=== PATIENT | male | born 1960 | race Caucasian/White ===

== ENCOUNTER → 2017-08-15 | Outpatient (CLI) | payer OTHER ==
[~2017-08-15] MED LIST: APAP500 PO; BACTRIM DS TAB1 EACH; KEFLEX500 MG PO; LOSARTAN-HCTZ1 EAC2 PO; METFORMIN HCL1000 MG PO; METFORMIN HCL500 MG PO; MOBIC15 MG PO; NORVASC10 MG PO; NORVASC5 MG PO
== END ==
LOC: RAD 13:59
DX: M25.561 Pain in right knee (principal); G89.29 Other chronic pain

== ENCOUNTER 2018-06-15 05:27 | Inpatient (IN) | payer OTHER ==
[2018-06-15] VITALS (7 sets, daily range): BP systolic 105–138; BP diastolic 50–74
[~2018-06-15] VITALS: Ht 180.3 cm; Wt 158.8 kg
--- NOTE | ~2018-06-15 | D ---
[facility] [place] [address] DISCHARGE SUMMARY Name: SHAI SOTELO Brittani Room #: 459-P [facility] IN .R.#: [id number] Admission: 06/15/18 Attend Phys: Rylan Nettles MD Discharge: Date of : 60 Report #: [id number] THIS REPORT FOR: //name// CC: Rylan Mckeon PLANNED DATE OF DISCHARGE: 06/18/2018. FINAL DIAGNOSES: Include end-stage degenerative osteoarthritis, right hip; hypertension; diabetes and morbid obesity. OPERATIONS AND PROCEDURES: Right total hip arthroplasty. HISTORY OF PRESENT ILLNESS: This very heavy deconditioned 58-year-old gentleman presents with progressive right hip pain with marked deformity and femoral head collapse. He has elected to go ahead with total hip arthroplasty. We have discussed that he certainly is going to have difficulty with postoperative rehabilitation and recovery and is at risk for problems and complications given his morbid obesity, noting his height is about 6 feet and weight about 350 pounds. HOSPITAL COURSE: The patient was admitted and taken to the operating room on 06/15/2018. He underwent right total hip arthroplasty, which went generally well despite his very large size. Postoperatively, he made rapid progress. The next morning, he was already up walking with Physical Therapy assistance and able to manage chair and bathroom. He was able to manage a regular diet and oral medications. His pain seemed to be well controlled on oral hydrocodone. He is tolerating his normal diabetic diet and routine medications. At this point, I anticipate we will make satisfactory progress with Physical Therapy assistance over the coming 48 hours and we are tentatively planning for discharge home on 06/18/2018. This will certainly depend upon his progress and safety and level of independence. He is certainly much too large to manage with family assistance at home. His home does have some stairs and so access will be somewhat limited. Pending all these issues, however, he is hoping to go home with family assistance on 06/18/2018. DISCHARGE MEDICATIONS: Include losartan/hydrochlorothiazide 100/12.5 one tablet daily, Norvasc 5 mg once daily, metformin 1000 mg b.i.d., multivitamin once every day, aspirin 81 mg every day, Xarelto 10 mg every day and hydrocodone 10 mg q. 6 hours p.r.n. for pain. We will plan for some home visiting therapy as well as possible occupational therapy if necessary. He will continue with his walker for careful protected activity and ambulation. I have asked him to call should there be any problems [address] [address] DISCHARGE SUMMARY Name: SHAI SOTELO Room #: 459-P [facility] IN M.R.#: [id number] Admission: 06/15/18 Attend Phys: Rylan Nettles MD Discharge: Date of : 60 Report #: [id number] or questions. I will plan to see him back in my office at about 2 weeks for followup and suture removal. By: 1247 [id number] Rylan Nettles MD /nt
[~2018-06-15 05:27] MED LIST changes: +ASPIR 8181 MG PO; +CENTRUM SILVER1 EAC2 PO; +FISH OIL 1,001000 M2 PO; +NAPROSYN500 MG PO; +POTASSIUM CITR10 ME1 PO; +VITAMIN D1000 UNI1 PO
--- NOTE | 2018-06-15 19:41 | NUR ---
Received pt from post op, shakir dressing intact ice pack provided. IV fluids started, pain medication given, Pt has low tolerance for pain and has had a hard time repositioning to find a "comfortable spot", pt is now in the postion he wants apnea machine on. Clear liquids started and is well tolerated.
[2018-06-16 03:55] VITALS: BP 129/60
[2018-06-16 05:35] LABS: HEMOGLOBIN 11.3 gm/dL (14.0-18.0); MCH 26.9 pg (26.0-34.0); MCHC 33.2 g/dL (28.0-37.0); MCV 81.3 fL (80.0-100.0); RBC 4.19 mil/uL (4.50-6.00); RDW 15.6 % (10.5-14.5); WBC 11.2 thou/uL (4.0-11.0)
--- NOTE | 2018-06-16 07:47 | O ---
[facility] [place] [address] OPERATIVE REPORT Name: SHAI SOTELO Brittani Room #: 459-P [facility] IN M.R.#: [id number] Admission: 06/15/18 Attend Phys: Rylan Nettles MD Discharge: Date of : 60 Report #: [id number] THIS REPORT FOR: //name// CC: Rylan Mckeon DATE OF SERVICE: 06/15/2018 PREOPERATIVE DIAGNOSIS: End-stage degenerative arthritis, right hip. POSTOPERATIVE DIAGNOSIS: End-stage degenerative arthritis, right hip. PROCEDURE: Right total hip arthroplasty. SURGEON: Rylan Nettles MD. INDICATIONS: This obese 58-year-old gentleman has moderately severe degenerative osteoarthritis of both hips. He is most symptomatic on the right side. He is having difficulty remaining active and functionally independent. We discussed treatment options including potential risks and benefits, particularly given his obesity. He and family understand, but feel he is unable to make much progress in weight reduction. We have elected to go ahead with right total hip arthroplasty. DESCRIPTION OF PROCEDURE: The patient was taken to the operating room where he was placed under general anesthesia. Prophylactic intravenous antibiotics were administered. He was turned to the left lateral decubitus position. The right hip and thigh were meticulously prepped and draped. A skin incision was made centered over the greater trochanter and carried through abundant adipose tissue and fascia and the gluteus was split longitudinally allowing exposure to the posterior aspect of the hip joint. Exposure was quite difficult and required significant additional assistance given his very large size. The posterior aspect of the hip was visualized and the short external rotators and capsule were taken down and tagged with several #1 Tevdek sutures. The hip was dislocated and marked degenerative change on both the femoral head and acetabulum was noted. A femoral neck osteotomy was performed. The canal was prepared with reamers and hand broaches. The Benjamin and Nephew hip system was utilized. The size 15 Synergy porous high offset femoral stem seemed to fit most appropriately. The trial stem was removed and attention directed to the acetabulum. Satisfactory exposure was established with significant difficulty. The acetabulum was then sequentially reamed, gradually advancing to a 62-mm reamer. The Benjamin and Nephew size 62 mm StikTite coated shell was then inserted. This was positioned in alignment with his true acetabulum, which placed this in about 45 degrees off of vertical and about 20 degrees of anteversion. It seated nicely and appeared to be secure. In addition, 3 screws were placed through the apex of the shell engaging good periacetabular bone [address] [address] OPERATIVE REPORT Name: SHAI SOTELO Brittani Room #: 459-P [facility] IN .R.#: [id number] Admission: 06/15/18 Attend Phys: Rylan Nettles MD Discharge: Date of : 60 Report #: [id number] resulting in significant additional stability. A 40-mm polyethylene insert was then applied, placing this with the 20-degree elevated rim at about the 10 o'clock posterior position. It seated nicely and appeared to be secure. The size 15 press-fit lateral offset femoral stem was then inserted in the canal. It seated nicely and appeared to be secure. A trial reduction was performed and the hip seemed best suited for a +4 mm neck length. This still allowed some longitudinal distraction at the joint, but the joint seemed stable throughout a full arc of motion. It was difficult to compare leg lengths relative the opposite limb given his obesity and difficult positioning on the table. I tested both a shorter 0-mm neck length and a longer 8-mm neck length. The shoulder seemed to be significantly unstable and longer seemed to be too tight creating difficulty with hip extension. The +4 mm neck length seemed to be the best option. A +4 mm neck length with a 40-mm Oxinium femoral head was then selected. The permanent component was impacted on the Damico taper of the stem and seated nicely and appeared to be secure. The hip was reduced. Alignment, range of motion, stability and leg length appeared to be satisfactory. The capsule and short external rotators were then repaired using the #1 Tevdek sutures passed through drill holes in the greater trochanter. A single Hemovac was left in the wound exiting through a separate stab incision. The fascia was closed with multiple #1 Vicryl sutures. The abundant adipose tissues and subcutaneous tissues were closed with 0 Monocryl. The skin was closed with skin lynne. A sterile dressing was applied. The patient was awakened and returned to recovery room in good condition. <ELECTRONICALLY SIGNED> By: Rylan Nettles MD 06/16/18 0747 1212 1242 Rylan Nettles MD /nt
[2018-06-16 08:00] VITALS: BP 128/64
[2018-06-16 08:29] LABS: CALCIUM 8.5 mg/dL (8.5-10.1); CREATININE 1.4 mg/dL (0.7-1.3)
[2018-06-16 13:55] VITALS: BP 117/42
--- NOTE | 2018-06-16 13:58 | NUR ---
PT ADMITTED RELATED TO RT TOTAL HIP REPLACEMENT. CM REVIEWED CHART AND SPOKE WITH CARE TEAM. CM MET WITH PT AT BEDSIDE. CM MET WITH PT AT BEDSIDE THIS DAY. PT IS A&O X4. CM ROLE INTRODUCED. PT INDICATED HE LIVES IN A HOUSE WITH HIS AND DTR WITH 3 STEPS TO ENTER AND 7 EITHER UP OR DOWN TO ACCESS BEDROOM AND BATHROOMS. PT INDICATED HE HAD BEEN INDEPENDENT WITH GAIT AND ADLS BIG DATA ADMIN. PT INDICATED HE HAS A CPAP FOR HOME USE AND THAT HE WILL NEED A FWW ISSUED PTD. CM NOTIFIED PROVIDER PLUS LIAISON AND SHE WILL DELIVER WALKER. PT INDICATED HE PLANS TO HAVE HOME HEALTH PT FOR A TIME AND THEN PLANS TO TRANSITION TO OP. PT IS DETERMININING IF HE WILL GO TO HIS SISTERS HOUSE [place] WHERE HE WOULDN'T NEED TO NAVAGATE ANY STEPS. CM TO FOLLOW UP WITH PT.
--- NOTE | 2018-06-16 16:58 | NUR ---
IT IS ANTICPATED THAT PT WILL [facility]. [facility] HAS ACCEPTED PT. PT WAS ISSUED A FWW FOR HOME USE.
--- NOTE | 2018-06-16 17:55 | NUR ---
PT ARRIVES AT 1755 ACCOMPANIED BY FAMILY, STAFF, VOLUNTEER IN W/C. WENT TO RESTROOM AMB W/WALKER, STEADILY, IV SITE LOOKS LIKE IT'S LEAKED AT SOME POINT, FLUSHED AND ASPIRATED SUCCESSFULLY, A&0X4, DENIES PAIN AT THIS TIME, SOA W/MVMT. VS BEING TAKEN, IN JOVIAL SPIRITS W/FAMILY AND STAFF. ENCOURAGED ALL TO USE CALL LIGHT FOR ANY NEEDS
[2018-06-16 18:27] VITALS: BP 142/74
--- NOTE | 2018-06-16 18:50 | NUR ---
PATIENT DOING WELL POSTOP DAY #1. VOIDING WITHOUT DIFFICULTY AND IN ADEQUATE AMOUNTS. AMBULATING TO BATHROOM WITH MINIMAL ASSISTANCE. HAD INCREASED PAIN AFTER WALKING IN [place]ADE THIS AFTERNOON. GAVE SOME MORPHINE AND WAS ABLE TO REST AFTER THAT AND HAD GOOD PAIN RELIEF. TOLERATING DIET WELL. SAT UP IN CHAIR FOR SEVERAL HOURS. HEMOVAC DRAIN WAS PULLED APART WHEN WORKING WITH OT. DR. ODEN VISITED AND GAVE ORDER TO DC DRAIN. 350 ML SANGUINOUS DRAINAGE EMPTIED. FALL PRECAUTIONS IN PLACE. TRANSFERRED TO SENIOR SUITES IN STABLE CONDITION.
--- NOTE | 2018-06-17 04:36 | NUR ---
ASSUMED CARE OF PATIENT AT 1900. VSS. ASSESSMENT COMPLETED AT 2155 AND IS DOCUMENTED. PRN NORCO GIVEN FOR C/O RIGHT HIP PAIN WITH DESIRED EFFECT ACHIEVED. ICE PACKS PROVIDED PRN. PT VOICED CONCERN ABOUT UNCONTROLLABLE PAIN DURING YESTERDAY'S AFTERNOON THERAPY SESSION AND INQUIRED ABOUT RECEIVING SOMETHING MORE EFFECTIVE FOR TODAY'S THERAPY. ANGELES DRSG ON RIGHT HIP C/D/I. CPAP WORN DURING THE NIGHT. RIGHT WRIST PIV PATENT AND SALINE LOCKED. PT CURRENTLY SLEEPING SOUNDLY IN BED IN NO ACUTE DISTRESS. CALL LIGHT WITHIN REACH. BED LOCKED AND IN LOWEST POSITION. WCTM.
[2018-06-17 06:06] LABS: HEMATOCRIT 31.1 % (42.0-52.0); HEMOGLOBIN 10.7 gm/dL (14.0-18.0); MCHC 34.4 g/dL (28.0-37.0); MCV 81.4 fL (80.0-100.0); PLATELET COUNT 204 thou/uL (150-400); RBC 3.83 mil/uL (4.50-6.00); RDW 15.7 % (10.5-14.5); WBC 8.3 thou/uL (4.0-11.0)
[2018-06-17 06:15] LABS: CALCIUM 7.9 mg/dL (8.5-10.1); CREATININE 1.1 mg/dL (0.7-1.3); MAGNESIUM 2.1 mg/dL (1.8-2.4); POTASSIUM 3.5 mmol/L (3.5-5.1)
[2018-06-17 07:34] LABS: ABSOLUTE NEUTROPHILS 4.5 thou/uL (1.4-8.2); ANISOCYTOSIS 1+; POLYCHROMASIA OCCASIONAL
[2018-06-17 09:00] VITALS: BP 122/63
--- NOTE | 2018-06-17 09:00 | NUR ---
ASSUMED PT CARE AT 0700. ASSESSMENT COMPLETE AND IS CHARTED AT 0900. ASSISTED PT UP TO CHAIR WITH MINIMAL ASSISTANCE AND WALKER. PT TOLERATED WELL. DRESSING TO RIGHT HIP IS CDI IS HEMOVAC INSERTION SITE. TRACE EDEMA TO LOWER EXTREMITIES. DOYLE HOSE IN PLACE BILATERAL. PT DENIES PAIN AT THIS TIME BUT WOULD LIKE TO COORDINATE PAIN MEDICATION AND THERAPY YESTERDAY WAS A ROUGH AFTERNOON DUE TO PAIN. IV REMOVED DRESSING WAS SOILED. NO OTHER CONCERNS AT THIS TIME. WILL MANAGE PAIN AND COORDINATE WITH THERAPY TODAY. OTHERWISE CONTINUE CURRENT CARE.
--- NOTE | 2018-06-17 14:05 | NUR ---
PT DOING WELL THIS SHIFT. PT REPORTED PHYSICAL THERAPY WENT VERY WELL THIS MORNING DUE TO PAIN MEDICATION BEING GIVEN AN HOUR BEFORE. PT HAS BEEN UP IN CHAIR MOST OF DAY. FAMILY AT BEDSIDE NOW. NO NEW CONCERNS. WILL CONTINUE WITH CURRENT CARE.
[2018-06-17 19:20] VITALS: BP 133/65; BP 191/94
--- NOTE | 2018-06-18 04:54 | NUR ---
ASSUMED CARE OF PATIENT AT 1900. VSS. ASSESSMENT COMPLETED AT 2022 AND IS DOCUMENTED. PT STATES PAIN WAS MORE EFFECTIVELY CONTROLLED FOR THERAPY YESTERDAY AND REQUESTS THAT, IF POSSIBLE, HE RECEIVE PAIN MEDS 1 HR PRIOR TO THERAPY. ANGELES DRSG C/D/I. CONTINUES ON CPAP AT NIGHT. PRN NORCO GIVEN PER PT REQUEST FOR C/O RIGHT HIP PAIN WITH DESIRED EFFECT ACHIEVED. PT HAS BEEN SLEEPING SOUNDLY THROUGHOUT THE NIGHT IN NO ACUTE DISTRESS. CALL LIGHT WITHIN REACH. BED LOCKED AND IN LOWEST POSITION. WCTM.
--- NOTE | 2018-06-18 06:32 | NUR ---
THIS NURSE AGREES WITH THE ASSESSMENT AND NOTES FROM THE RECONSIGNMENT CLERK ON THIS PATIENT.
[2018-06-18 06:43] LABS: HEMATOCRIT 31.5 % (42.0-52.0); HEMOGLOBIN 10.3 gm/dL (14.0-18.0); MCHC 32.7 g/dL (28.0-37.0); MCV 82.7 fL (80.0-100.0); RBC 3.82 mil/uL (4.50-6.00); RDW 15.3 % (10.5-14.5)
[2018-06-18 08:19] VITALS: BP 159/83
[2018-06-18 12:57] VITALS: BP 159/83
--- NOTE | 2018-06-18 12:57 | NUR ---
ASSUMED CARE OF PATIENT THIS MORNING. PATIENT IS A&OX4. UP WITH MINIMUM ASSISTANCE W/WALKER WHEN AMBULATING. NO ABNORMAL FINDINGS WITH ASSESSMENT. LAST BOWEL MOVEMENT WAS THIS MORNING. REFUSED STOOL SOFTENERS AND LAXATIVE. PATIENT WILL BE DISCHARGING THIS AFTERNOON WITH HOME HEALTH. HE WILL FOLLOW UP WITH [facility] ON 06/29/18. HE IS CURRENTLY SITTING IN RECLINER WITH CALL LIGHT WITHIN REACH. NO IV TO REMOVE FOR DISCHARGE.
--- NOTE | 2018-06-18 14:39 | NUR ---
PATIENT DISCHARGED WITH HOME HEALTH. HE WENT HOME WITH TWO PRESCRIPTIONS. PATIENT IN AGREEMENT WITH DISCHARGE, AND SIGNED PAPERWORK. HE LEFT WITH PERSONAL BELONGINGS AND NEW WALKER.
== END 2018-06-18 14:30 | disposition home health service (06) | DRG 469 ==
LOC: 4W 05:27 → TBA 05:27 → PRE 05:51 → 4W 14:41 → PRE 15:05 → SICU 06-16 18:13
PROVIDERS: Nurse Practitioner; ADMIT Orthopaedic Surgery
PROC: 0SR906A Replacement of Right Hip Joint with Oxidized Zirconium on Polyethylene Synthetic Substitute, Uncemented, Open Approach (ICD-10-PCS; principal; 2018-06-15)
DX: M16.11 Unilateral primary osteoarthritis, right hip (principal); N17.0 Acute kidney failure with tubular necrosis; Z68.42 Body mass index [BMI] 45.0-49.9, adult; E66.01 Morbid (severe) obesity due to excess calories; I10 Essential (primary) hypertension; E11.9 Type 2 diabetes mellitus without complications; E78.5 Hyperlipidemia, unspecified; K21.9 Gastro-esophageal reflux disease without esophagitis; E78.00 Pure hypercholesterolemia, unspecified; F12.90 Cannabis use, unspecified, uncomplicated; G47.33 Obstructive sleep apnea (adult) (pediatric); Z88.6 Allergy status to analgesic agent; Z88.8 Allergy status to other drugs, medicaments and biological substances; Z79.82 Long term (current) use of aspirin; Z79.899 Other long term (current) drug therapy; Z87.891 Personal history of nicotine dependence; Z28.21 Immunization not carried out because of patient refusal; Z83.3 Family history of diabetes mellitus; Z82.49 Family history of ischemic heart disease and other diseases of the circulatory system
CPT/HCPCS: 10047; 15002; 50010; 50101; 50382; 50414; 51412; 53000; 53368; 56521; 56525; 56527; 57095; 57103; 62110; 62900; 70005

== ENCOUNTER → 2018-12-29 | Outpatient (CLI) | payer OTHER ==
[~2018-12-29] MED LIST changes: +BYSTOLIC 5 MG5 M1 PO; +COZAAR 25 MG TA25 M1 PO; +CRESTOR20 MG PO; +GLUCOSAMINE HC500 MG PO; +TAMBOCOR 100 M100 M1 PO; +WELLBUTRIN 75 M75 M1 PO; +XARELTO20 MG PO
== END ==
LOC: CAT 12:45
DX: Z13.6 Encounter for screening for cardiovascular disorders (principal); E78.00 Pure hypercholesterolemia, unspecified; I25.10 Atherosclerotic heart disease of native coronary artery without angina pectoris

== ENCOUNTER 2019-01-09 18:11 | Inpatient (IN) | payer OTHER ==
[~2019-01-09] VITALS: Ht 180.3 cm; Wt 155.6 kg
--- NOTE | ~2019-01-09 | EKG ---
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
[~2019-01-09 18:11] MED LIST changes: -BYSTOLIC 5 MG5 M1 PO; -COZAAR 25 MG TA25 M1 PO; -CRESTOR20 MG PO; -GLUCOSAMINE HC500 MG PO; -TAMBOCOR 100 M100 M1 PO; -WELLBUTRIN 75 M75 M1 PO; -XARELTO20 MG PO
[2019-01-09 18:12] VITALS: BP 173/123
[2019-01-09 18:26] LABS: ABSOLUTE NEUTROPHILS 9.2 thou/uL (1.4-8.2); BASOPHILS 0.6 % (0.0-2.0); EOSINOPHILS 0.4 % (0.0-3.0); HEMATOCRIT 41.1 % (42.0-52.0); HEMOGLOBIN 13.7 gm/dL (14.0-18.0); LYMPHOCYTES 13.1 % (24.0-44.0); MCH 26.3 pg (26.0-34.0); MCHC 33.3 g/dL (28.0-37.0); MCV 78.8 fL (80.0-100.0); MONOCYTES 9.5 % (1.0-8.0); PLATELET COUNT 285 thou/uL (150-400); POLYS 76.4 % (36.0-66.0); RBC 5.22 mil/uL (4.50-6.00); RDW 16.6 % (10.5-14.5)
[2019-01-09 18:36] LABS: ANION GAP 12 mmol/L (7-16); BUN 17 mg/dL (7-18); CALCIUM 9.2 mg/dL (8.5-10.1); CHLORIDE 103 mmol/L (98-107); CO2 24 mmol/L (21-32); CREATININE 1.1 mg/dL (0.7-1.3); GLUCOSE 127 mg/dL (74-106); POTASSIUM 4.1 mmol/L (3.5-5.1); SODIUM 139 mmol/L (136-145)
[2019-01-09 18:46] LABS: ALBUMIN 3.7 g/dL (3.4-5.0); SGOT 31 U/L (15-37); SGPT 57 U/L (30-65); TOTAL BILIRUBIN 1.2 mg/dL (<0.1-1.0); TOTAL PROTEIN 8.1 g/dL (6.4-8.2); TROPONIN-I <0.06 ng/mL (<0.06)
[2019-01-09] MEDS ORDERED: BYSTOLIC 5 MG5 M1 PO (19:42)
[2019-01-09] MEDS ORDERED: NAPROSYN500 MG PO (19:46)
[2019-01-09] MEDS ORDERED: WELLBUTRIN 75 M75 M1 PO (19:47)
[2019-01-09 19:51] VITALS: BP 187/98
[2019-01-09 20:00] VITALS: BP 161/97
[2019-01-09 20:16] VITALS: BP 169/90
[2019-01-09 20:36] VITALS: BP 161/97
[2019-01-09 23:53] VITALS: BP 169/100
[2019-01-10] VITALS (11 sets, daily range): BP systolic 118–169; BP diastolic 77–100
--- NOTE | 2019-01-10 05:59 | NUR ---
PT ARRIVED TO UNIT APPROX 2029, ADMISSION AND ASSESSMENT COMPLETED, CONSENTS SIGNED INCLUDING TELEMETRY DISCLOSURE. PT ABLE TO WALK FROM CART TO BED, BECAME MODERATELY SOB AND DIAPHORETIC. REPORTS MINIMAL CHEST PAIN COMPARED TO EARLIER IN THE DAY WHEN IT WAS A DULL, HEAVY PRESSURE ON HIS CHEST; STATES THE PAIN IMPROVED AFTER GETTING CARDIZEM IN ED. HR 125-135, AFIB RVR ON TELE; DILTIAZEM INFUSING AT 15 ML/HR, BP 160'S/90'S. AT MIDNIGHT, PT'S BP WAS 169/100 AND HR STILL 105-115, TITRATED DRIP UP TO 20 ML/HR. AT 0400, HR WAS 80-90 BUT STILL AFIB, BP 130'S/80'S; TITRATED DRIP TO 15, THEN AN HOUR LATER HR STILL MAINTAINING IN 80'S, TITRATED DOWN TO 10 ML/HR. PT IS ACCUCHECK ACHS, GIVEN 3 UNITS OF LISPRO FOR HS BLOOD SUGAR OF 162; PT ALSO HAD A SNACK. SKIN INTACT. KEEPING PT STANDBY ASSIST OVERNIGHT R/T IRREGULAR HR AND ELEVATED BP WITH DIZZINESS AT HOME PRIOR TO TREATMENT. PT WEARS CPAP OVERNIGHT, WITH CONT PULSE OX; ASKED FOR SLEEPING PILL HE REPORTS BEING UNABLE TO SLEEP IN THE HOSPITAL, OBTAINED ORDER FOR TRAZADONE. NO OTHER CONCERNS, WILL CONTINUE TO MONITOR.
[2019-01-10 06:00] LABS: HEMATOCRIT 37.2 % (42.0-52.0); HEMOGLOBIN 12.3 gm/dL (14.0-18.0); MCH 26.4 pg (26.0-34.0); RBC 4.65 mil/uL (4.50-6.00); RDW 16.5 % (10.5-14.5); WBC 9.8 thou/uL (4.0-11.0)
[2019-01-10 06:26] LABS: ANION GAP 9 mmol/L (7-16); BUN 16 mg/dL (7-18); CALCIUM 8.5 mg/dL (8.5-10.1); CHLORIDE 104 mmol/L (98-107); CO2 27 mmol/L (21-32); CREATININE 1.2 mg/dL (0.7-1.3); GLUCOSE 119 mg/dL (74-106); POTASSIUM 3.6 mmol/L (3.5-5.1); SODIUM 140 mmol/L (136-145); TROPONIN-I <0.06 ng/mL (<0.06)
[2019-01-10] MEDS ORDERED: CRESTOR20 MG PO (09:26)
--- NOTE | 2019-01-10 09:26 | NUR ---
RD consult received for pt with obesity. BMI 47.9=extreme class III classification. Pt sleeping on cpap at time of visit. Breakfast tray observed, had eaten 100%. Hx diabetes, htn and BG controlled 106-162. Has regular diet order ordered, however was on carb control, heart healthy 1 day ago which is more appropriate given history, Wt down ~7 lb x 8 mo, beneficial. Continue to promote controlled loss. Low nutrition risk.
[2019-01-10] MEDS ORDERED: BYSTOLIC 5 MG5 M1 PO (09:29)
[2019-01-10] MEDS ORDERED: GLUCOSAMINE HC500 MG PO (09:43)
--- NOTE | 2019-01-10 12:14 | 2DMMODE ---
[facility] [place] [address] 2 D/M-MODE ECHOCARDIOGRAM Name: SHAI SOTELO Room #: 357-P [facility].#: [id number] Admission: 01/09/19 Attend Phys: Heather Lucio Discharge: Date of : 60 Date of Service: 01/10/19 1213 Report #: [id number] THIS REPORT FOR: //name// APPROVED REPORT Study performed: 01/10/2019 10:32:43 EXAM: Comprehensive 2D, Doppler, and color-flow Echocardiogram Patient Location: Bedside Status: routine BSA: 2.63 HR: 82 bpm BP: 135/85 mmHg Rhythm: Atrial Fibrillation Other Information Study Quality: Technically Difficult Indications Diabetes Atrial Fibrillation Dyspnea Hypertension/HDD Echo Enhancing Agent Indication: Endocardial border delineation Agent(s) / Amount(s) Used: Optison 4 cc 2D Dimensions RVDd: 36.62 mm IVC: 25.00 mm Volumes Left Atrial Volume (Systole) Single Plane 4CH: 116.85 mL Single Plane 2CH: 93.41 mL LA ESV Index: 44.00 mL/m2 Aortic Valve AoV Peak Valeriano.: 1.04 m/s AO Peak Gr.: 4.35 mmHg LVOT Max P.55 mmHg LVOT Max V: 0.79 m/s Pulmonary Valve PV Peak Valeriano.: 0.81 m/s PV Peak Gr.: 2.61 mmHg [facility] [address] [place] [address] 2 D/M-MODE ECHOCARDIOGRAM Name: SHAI SOTELO Brittani Room #: 357-P ADM IN M.R.#: [id number] Admission: 01/09/19 Attend Phys: Heather Lucio Discharge: Date of : 60 Date of Service: 01/10/19 1213 Report #: [id number] Tricuspid Valve TR Peak Valeriano.: 2.88 m/s TR Peak Gr.: 33.22 mmHg PA Pressure: 48.00 mmHg Left Ventricle The left ventricle is normal size. There is normal LV segmental wall motion. There is normal left ventricular wall thickness. The left ventricular systolic function is normal. The left ventricular ejection fraction is within the normal range. LVEF is >55%. This study is not technically sufficient to allow evaluation of the LV diastolic function due to atrial fibrillation. Right Ventricle The right ventricle is normal size. The right ventricular systolic function is normal. Atria Left atrium is dilated. Right atrium is dilated. Aortic Valve The aortic valve is normal in structure. Trace aortic regurgitation. There is no aortic valvular stenosis. Mitral Valve The mitral valve is normal in structure. Moderate mitral regurgitation. No evidence of mitral valve stenosis. Tricuspid Valve The tricuspid valve is normal in structure. There is mild tricuspid regurgitation. Estimated PAP 48 mmHg. There is moderate pulmonary hypertension. Pulmonic Valve The pulmonary valve is normal in structure. There is no pulmonic valvular regurgitation. Great Vessels The aortic root is normal in size. The inferior vena cava is dilated with no inspiratory collapse. Pericardium There is no pericardial effusion. <Conclusion> [facility] [address] [place] [address] 2 D/M-MODE ECHOCARDIOGRAM Name: SHAI SOTELO Room #: 357-P ADM IN M.R.#: [id number] Admission: 01/09/19 Attend Phys: Heather Lucio Discharge: Date of : 60 Date of Service: 01/10/19 1213 Report #: [id number] The left ventricle is normal size. LVEF is >55%. Left atrium is dilated. Right atrium is dilated. The aortic valve is normal in structure. Trace aortic regurgitation. The mitral valve is normal in structure. Moderate mitral regurgitation. The tricuspid valve is normal in structure. There is mild tricuspid regurgitation. Estimated PAP 48 mmHg. There is moderate pulmonary hypertension. The pulmonary valve is normal in structure. There is no pericardial effusion. <ELECTRONICALLY SIGNED> By: Portillo Benton MD 01/10/193 12 12 Portillo Benton MD /INF
--- NOTE | 2019-01-10 14:54 | NUR ---
INITIAL ASSESSMENT: Received consult for cardiac rehab. SW reviewed chart and spoke with attending physician. Pt was admitted from home due to chest pain/A-fib with RVR. Cardiology consulted. Pt to have an echo today and TRINI/cardioversion tomorrow. SW met with pt at bedside. Introduced role of SW. Pt is alert/orientated x 4. Pt reports he lives at home with his family. Prior to admission, pt was independent with ADLs. Pt has a cpap machine at home. Unsure of provider. Pt's PCP is Dr. Mckeon. Plan is for pt to discharge home when medically stable. SW is follwoing to assist as needed with discharge planning.
--- NOTE | 2019-01-10 17:39 | NUR ---
ASSUMED CARE OF PATIENT AT 0700 TODAY. PATIENT IS ON CARDIZIEM DRIP, FOR ATRIAL FIBRILLATION, AT 10 ML/HR AND SEEMS TO BE A THERAPEUTIC AT THAT LEVEL. BLOOD PRESSURE AND HR HAVE BEEN IN GOOD STANDING WITH SYSTOLIC BP'S UNDER 140 AND HR IN 70S-80S. PATIENT HAD TRANSTHORAIC ECHO TODAY SHOWING LVEF>55%. PATIENT IS NPO AFTER MIDNIGHT FOR ESOPHOGEAL ECHO WITH CARDIOVERSION TOMORROW.
[2019-01-11] VITALS (13 sets, daily range): BP systolic 120–153; BP diastolic 61–96
[2019-01-11 05:44] LABS: CALCIUM 8.5 mg/dL (8.5-10.1); CREATININE 1.3 mg/dL (0.7-1.3); POTASSIUM 3.4 mmol/L (3.5-5.1)
--- NOTE | 2019-01-11 06:13 | NUR ---
ASSUMED CARE AT 1900. PT REPORTS HIS CHEST PAIN IS NEGLIGIBLE, FEELS LIKE BRUISING FROM HIS RAPID HEARTRATE YESTERDAY; ONLY RATES IT ABOUT A ONE OF TEN, WORSE WITH DEEP INSPIRATION. STILL C/O SOB WITH ACTIVITY OR TALKING. DENIES NAUSEA. CARDIZEM DRIP INFUSING AT 10 ML/HR OVERNIGHT. PT'S PRIMARY CONCERN WAS BEING ABLE TO SLEEP OVERNIGHT BECAUSE HE SLEPT POORLY THE PREVIOUS SEVERAL NIGHTS AND HE DIDN'T WANT TO BECOME OVERLY ANXIOUS FOR HIS PROCEDURE IN AM. REPORTED THE BED HAD CAUSED HIM INCREASED BACK AND HIP PAIN. OBTAINED ORDER FOR TRAMADOL AND INCREASED DOSE OF TRAZADONE. PT HAS SLEPT MOST OF THE NIGHT, LESS RESTLESS THAN PREVIOUS SHIFT. HR HAS BEEN STABLE IN 70-80'S, STILL IN AFIB. NPO SINCE MIDNIGHT FOR TRINI WITH CARDIOVERSION TODAY. NO OTHER CONCERNS, WILL CONTINUE TO MONITOR.
[2019-01-11] MEDS ORDERED: XARELTO20 MG PO (09:39)
[2019-01-11] MEDS ORDERED: TAMBOCOR 100 M100 M1 PO (09:39)
[2019-01-11] MEDS ORDERED: COZAAR 25 MG TA25 M1 PO (09:40)
--- NOTE | 2019-01-11 09:47 | TEE ---
[facility] [address] [place] [address] TRANSESOPHAGEAL ECHOCARDIOGRAM Name: DEEPAKSHAI P Room #: 357-P [facility] IN ..#: [id number] Admission: 01/09/19 Attend Phys: Heather Lucio Discharge: Date of : 60 Date of Service: 01/11/19 0947 Report #: [id number] THIS REPORT FOR: //name// APPROVED REPORT Study performed: 01/11/2019 07:50:32 EXAM: Comprehensive 2D, Doppler, and color-flow Echocardiogram Patient Location: label coder holding Room #: 357 Status: routine BSA: 2.63 HR: 122 bpm BP: 127/70 mmHg Rhythm: Atrial Fibrillation Other Information Study Quality: Excellent Indications Atrial Fibrillation Echo Enhancing Agent Indication: Rule out Shunt Agent(s) / Amount(s) Used: Agitated Saline 7 cc Procedure After obtaining informed consent, patient underwent transesophageal echo in the [employer]. Type of Sedation : Conscious Sedation Sedation was administered by Janice Coles MD. Ketamine 15 mg Sedation was achieved intravenously with: Propofol (140 mcg) Transesophageal probe was inserted and advanced into esophagus without difficulty by Kenneth Michelle MD. Echo enhancement indication: R/O Septal defect. Echo enhancement agent administered: Agitated Saline The TRINI was performed without complications. Synchronized Cardioversion acheived with 150 Joules after 1 attempt(s). Rhythm following Synchronized Cardioversion: Normal Sinus Rhythm Throughout the procedure, the blood pressure, pulse oximetry, cardiac rhythm, and rate were monitored. [facility] [employer] [place] [address] TRANSESOPHAGEAL ECHOCARDIOGRAM Name: SHAI SOTELO Brittani Room #: 357-P [facility] IN ..#: [id number] Admission: 01/09/19 Attend Phys: Heather Lucio Discharge: Date of : 60 Date of Service: 01/11/19 0947 Report #: [id number] The patient tolerated the procedure without adverse effects. Recovery from conscious sedation was uneventful and vital signs were stable. Left Ventricle The left ventricle is normal size. There is normal LV segmental wall motion. There is normal left ventricular wall thickness. The left ventricular systolic function is normal. The left ventricular ejection fraction is within the normal range. LVEF is 55-60%. Right Ventricle The right ventricle is normal size. The right ventricular systolic function is normal. Atria Left atrium is dilated. No thrombus is visualized in the left atrium or appendage. No shunting by contrast bubble injection Right atrium is dilated. Aortic Valve The aortic valve is normal in structure. No aortic regurgitation is present. There is no aortic valvular stenosis. Mitral Valve The mitral valve is normal in structure. Moderate mitral regurgitation. No evidence of mitral valve stenosis. Tricuspid Valve The tricuspid valve is normal in structure. Trace to mild tricuspid regurgitation. Pulmonic Valve The pulmonary valve is normal in structure. There is no pulmonic valvular regurgitation. Great Vessels The aortic root is normal in size. IVC is normal in size and collapses >50% with inspiration. Pericardium There is no pericardial effusion. <Conclusion> The left ventricular systolic function is normal. There is normal LV segmental wall motion. LVEF is 55-60%. [facility] [address] [place] [address] TRANSESOPHAGEAL ECHOCARDIOGRAM Name: SHAI SOTELO Brittani Room #: 357-P ADM IN .R.#: [id number] Admission: 01/09/19 Attend Phys: Heather Lucio Discharge: Date of : 60 Date of Service: 01/11/1947 Report #: [id number] Both atria are mildly dilated. No thrombus is visualized in the left atrium or appendage. No shunting by contrast bubble injection The aortic valve is normal in structure. Trace aortic regurgitation The mitral valve is normal in structure. Moderate mitral regurgitation. There is no pericardial effusion. Successful cardioversion of atrial fibrillation to sinus rhythm following 1 biphasic synchronous shock <ELECTRONICALLY SIGNED> By: Kenneth Michelle MD, FACC 01/11/19946 6 6 Kenneth Michelle MD, FACC /INF
--- NOTE | 2019-01-11 10:18 | NUR ---
PT TO TRINI AT 0715. PT BACK ON UNIT AT 0930. PT SUPPOSED TO BE ON BEDREST FOR AN HOUR PER CARDIOLOGY NURSE. PT REFUSING TO USE URINAL, GETTING ANGRY TELLING THE RN HE WILL NOT STAY IN BED THAT HE HAS TO PEE AND HE IS WALKING TO THE BATHROOM. DEMANDING RN LOWER BED RAIL SO HE CAN GET OUT OF BED. PT STEADY ON FEET TO BATHROOM. PT DIAPHORETIC, VSS. IN ROOM. PT STATING HE NEEDS WATER AND FOOD NOW. INSTRUCTED PT THAT HE WOULD GET A SIP OF WATER TO MAKE SURE HIS GAG AND SWALLOW REFLEX WERE INTACT AFTER PROCEDURE. HE SAID HOW DO YOU THINK I EAT IF I CAN'T SWALLOW? GAVE PT SIP OF WATER, HE SWALLOWED FINE. WATER AND DIET SPRITE GIVEN. MEDICATIONS GIVEN AND PT APPLIED TO FREQUENT VITALS.
--- NOTE | 2019-01-11 14:12 | NUR ---
SW reviewed chart and spoke with nursing and attending physician. Pt had TRINI earlier today. Plan is for pt to discharge home when medically stable. DENISSE is following to assist as needed with discharge planning.
--- NOTE | 2019-01-11 14:38 | NUR ---
PT CALLED OUT REPEATEDLY ASKING FOR DISCHARGE PAPERS. INFORMED PT THAT WHILE CARDIOLOGY SAID HE IS FREE TO GO, DR ALCANTAR SAID HE WANTS TO SEE WHAT PULMONOLOGY SAYS FIRST. PT VERY VERBALLY AGGRESSIVE WITH RN AND BILLING AUDITOR. INFORMED PT PULM IS ROUNDING, PT WANTS TO KNOW EXACT TIME HE WILL BE HERE, IS NOT PLEASED WITH NOT KNOWING. SPOKE WITH DR MCCURDY, STATES HE IS IN THE BUILDING.
--- NOTE | 2019-01-11 15:53 | NUR ---
DR MCCURDY ON UNIT, PENDING DISCHARGE IN COMPUTER PER DR ALCANTAR. WILL DISCHARGE IF OK WITH DR MCCURDY.
--- NOTE | 2019-01-11 16:50 | NUR ---
DISCHARGE INSTRUCTIONS REVIEWED WITH PT AND . EDUCATION MATERIALS, DISCHARGE INSTRUCTIONS AND RX SENT WITH PT. PIV AND TELEMETRY DISCONTINUED. QUESTIONS ANSWERED.
--- NOTE | 2019-01-12 14:00 | EKG ---
[address] [email or web address] [address] ELECTROCARDIOGRAM REPORT Name: SHAI SOTELO Room #: 357-[facility] IN M.R.#: [id number] Admission: 01/09/19 Attend Phys: Heather Gaffney Discharge: 01/11/19 Date of : 60 Report #: [id number] THIS REPORT FOR: //name// [facility] Test Date: 2019-01-11 Test Time: 10:21:10 Pat Name: SHAI SOTELO Department: Room: 357 Gender: M Hospital Carrier: GORDON : 1960 Requested By: Dawna Batres Order Number: [id number] MD: Kenneth Michelle Measurements Intervals [place] Rate: 78 P: 63 [place]: 193 QRS: 8 QRSD: 109 T: 42 QT: 431 QTc: 491 Interpretive Statements Sinus rhythm Borderline prolonged QT interval Compared to ECG 01/09/2019 18:12:17 Atrial flutter no longer present Electronically Signed On 01-12-2019 14:00:13 CDT by Kenneth Michelle [email or web address] <ELECTRONICALLY SIGNED> By: Kenneth Michelle MD, [facility] 01/12/19 1400 102 20 Kenneth Michelle MD, [facility] /EPI
== END 2019-01-11 17:25 | disposition home or self-care (01) | DRG 309 ==
LOC: ER 18:11 → EROBS 19:27 → 3W 19:27 → ENTRNSPT 01-11 16:43 → 3W 01-11 17:25
PROVIDERS: Emergency Medicine; Nurse Practitioner; Nurse Practitioner Family; ADMIT Hospitalist
PROC: B24BZZ4 Ultrasonography of Heart with Aorta, Transesophageal (ICD-10-PCS; principal; 2019-01-11)
DX: I48.91 Unspecified atrial fibrillation (principal); Z68.42 Body mass index [BMI] 45.0-49.9, adult; E11.9 Type 2 diabetes mellitus without complications; E78.5 Hyperlipidemia, unspecified; E66.01 Morbid (severe) obesity due to excess calories; Z96.649 Presence of unspecified artificial hip joint; I07.1 Rheumatic tricuspid insufficiency; G47.33 Obstructive sleep apnea (adult) (pediatric); I10 Essential (primary) hypertension; Z87.81 Personal history of (healed) traumatic fracture; Z88.6 Allergy status to analgesic agent; Z88.8 Allergy status to other drugs, medicaments and biological substances; Z87.891 Personal history of nicotine dependence; Z82.49 Family history of ischemic heart disease and other diseases of the circulatory system; Z95.1 Presence of aortocoronary bypass graft; Z79.82 Long term (current) use of aspirin; Z79.899 Other long term (current) drug therapy
CPT/HCPCS: 10879; 62110; 62900

== ENCOUNTER 2019-03-22 06:01 | Inpatient (IN) | payer OTHER ==
[2019-03-15 09:54] LABS: HEMATOCRIT 39.8 % (42.0-52.0); HEMOGLOBIN 12.8 gm/dL (14.0-18.0); MCH 25.9 pg (26.0-34.0); MCHC 32.2 g/dL (28.0-37.0); MCV 80.5 fL (80.0-100.0); RBC 4.95 mil/uL (4.50-6.00); RDW 16.5 % (10.5-14.5); WBC 6.8 thou/uL (4.0-11.0)
[2019-03-15 10:04] LABS: ALBUMIN 3.4 g/dL (3.4-5.0); CALCIUM 8.7 mg/dL (8.5-10.1); CREATININE 0.9 mg/dL (0.7-1.3); POTASSIUM 3.9 mmol/L (3.5-5.1)
[2019-03-15 10:06] LABS: URINE BILIRUBIN NEGATIVE (Negative); URINE BLOOD 1+ (Negative); URINE CLARITY CLEAR; URINE COLOR YELLOW; URINE GLUCOSE-RANDOM* NEGATIVE (Negative); URINE KETONES NEGATIVE (Negative); URINE LEUKOCYTES-REFLEX NEGATIVE (Negative); URINE NITRITE-REFLEX NEGATIVE (Negative); URINE PROTEIN (DIPSTICK) NEGATIVE (Negative); URINE SPECIFIC GRAVITY 1.025 (1.005-1.035); URINE UROBILINOGEN 0.2 E.U./dl (0.2-1.0)
[2019-03-15 10:07] LABS: INR 1.1; PROTIME 11.7 Seconds (9.3-11.4)
[2019-03-15 10:26] LABS: CASTS None Seen /LPF (None Seen); MUCUS 4-6 Moderate strn/LPF (None Seen); SQUAMOUS 0-3 Few /LPF (0-3)
[2019-03-15 10:27] LABS: BACTERIA-REFLEX None Seen /HPF (None Seen); CRYSTALS None Seen /LPF (None Seen); URINE RBC 3-10 Few /HPF (0-2); URINE WBC-REFLEX 0-5 Rare /HPF (0-5)
[2019-03-16 00:07] LABS: GLYCOHEMOGLOBIN (HGB A1C) 5.8 % (4.8-5.6)
[~2019-03-22] VITALS: Ht 182.9 cm; Wt 160.6 kg
[~2019-03-22 06:01] MED LIST changes: +BYSTOLIC 5 MG5 M1 PO; +COZAAR 25 MG TA25 M1 PO; +COZAAR100 MG PO; +CRESTOR20 MG PO; +FISH OIL 1,0001 EAC9 PO; +GLUCOPHAGE1000 MG PO; +GLUCOSAMINE HC500 MG PO; +TAMBOCOR 100 M100 M1 PO; +VITAMIN D31000 UNIT PO; +WELLBUTRIN 75 M75 M1 PO; +XARELTO20 MG PO
[2019-03-22 08:29] VITALS: BP 130/67
--- NOTE | 2019-03-22 12:23 | O ---
[facility] [place] [address] [place] [address] OPERATIVE REPORT Name: SHAI SOTELO Brittani Room #: 150-2 ADM IN M.R.#: [id number] Admission: 03/22/19 Attend Phys: Rylan Nettles MD Discharge: Date of : 60 Report #: [id number] THIS REPORT FOR: //name// CC: Rylan Mckeon DATE OF SERVICE: 03/22/2019 PREOPERATIVE DIAGNOSIS: End-stage degenerative arthritis, left hip. POSTOPERATIVE DIAGNOSIS: End-stage degenerative arthritis, left hip. PROCEDURE: Left total hip arthroplasty. HISTORY: This very large 59-year-old gentleman has progressive degenerative arthritis in multiple joints. He underwent right total hip arthroplasty earlier this year with very satisfactory result. He is here now for left total hip arthroplasty. We have discussed that he is certainly at increased risk for perioperative problems given his very large size and other medical issues including diabetes. The patient and family understand and wish to proceed with left total hip replacement. DESCRIPTION OF PROCEDURE: The patient was taken to the operating room where he was placed under general anesthesia. Prophylactic intravenous antibiotics were administered. He was turned to the right lateral decubitus position. The left hip, thigh and leg were meticulously prepped and draped. A slightly curving skin incision was made centered over the greater trochanter. This was carried through fascia and gluteus exposing the posterior aspect of the hip joint. Exposure was difficult from the very outset given his very large size with abundant adipose tissue as well as a thick heavy muscle layers. Adequate exposure was established. The short external rotators and capsule were taken down and preserved. The hip was dislocated posteriorly. Marked degenerative change on the femoral head and acetabulum was noted. A femoral neck osteotomy was performed. The femoral canal was prepared using broaches and reamers. The Benjamin and Nephew hip system was utilized. The femur seemed best suited for a size 14 press-fit stem. The trial stem was removed and attention directed to the acetabulum. Exposure here was quite difficult given his very large size. There was marked degenerative change of the labrum as well as the cartilage surfaces. The acetabulum was sequentially reamed, gradually advancing to a 60 mm reamer. It was very difficult to achieve satisfactory anteversion of the cup given his very large size and instrument impingement on the femur even with maximum retraction. Nevertheless, I feel a satisfactory aligned cup was established. A 60 mm StikTite acetabular shell with three apical holes was utilized. This was inserted, positioning this in alignment with his true acetabulum, which is about 15 degrees of anteversion and about 40 degrees off of vertical. The cup seemed to seat nicely and appeared to be secure. In [address] [address] OPERATIVE REPORT Name: SHAI SOTELO Room #: 150-2 [facility] IN M.R.#: [id number] Admission: 03/22/19 Attend Phys: Rylan Nettles MD Discharge: Date of : 60 Report #: [id number] addition, three cancellous screws were placed in the apex holes. They engage good periacetabular bone and seemed to secure the cup quite nicely. A 40 mm liner was then selected. This was positioned with the 20-degree elevated nicole at about the 9 o'clock posterior position to increase the anteversion on the cup as much as possible. The liner seated nicely and appeared to be secure. The permanent femoral stem was then brought on to the field. The size 14 lateral offset stem fit most appropriately. This was impacted into position. It seated nicely and appeared to be very secure. Trial reduction was performed and the hip seemed best suited for a size 8 mm femoral neck length. This resulted in full hip extension and satisfactory flexion and rotation with satisfactory stability, leg length appeared to be equal to the opposite side when measured with one leg against the other The permanent 40 mm Oxinium femoral head with a +8 mm neck sleeve was selected. This was brought on to the field and impacted on the Damico taper of the femoral stem. It seated nicely and was secure. The hip was reduced. Alignment, range of motion, stability and leg length were once again assessed and felt to be satisfactory. The remnants of the short external rotators and capsule were repaired back to bone on the greater trochanter using several #1 Tevdek sutures. A single Hemovac was left in the wound exiting through a separate stab incision. The fascia was then closed with multiple #1 Vicryl sutures. The adipose tissues and subcutaneous tissues were closed with 0 Monocryl. The skin was closed with skin lynne. A sterile dressing was applied. The patient was awakened and returned to recovery room in good condition. <ELECTRONICALLY SIGNED> By: Rylan Nettles MD 03/22/19 1223 1014 1138 Rylan Nettles MD /nt
--- NOTE | 2019-03-22 16:00 | NUR ---
PT RECEIVED FROM THE REC RM AT 1445 AND SETTLED IN NEW ROOM. DSNG DRY W/ ICE PACK. GOOD CIRC/SENS TO TOES. PT REQUESTING TO EAT SOON HE GOT TO ROOM. BOX LUNCH GIVEN. ACCU CK 145. PAIN WELL CONTROLLED W/ PAIN MEDS. 1600 - REPORT GIVEN TO ONCOMING RN.
[2019-03-22 21:35] VITALS: BP 139/80
[2019-03-23 03:05] VITALS: BP 143/83
[2019-03-23 05:11] LABS: HEMATOCRIT 33.5 % (42.0-52.0); HEMOGLOBIN 10.9 gm/dL (14.0-18.0); MCH 26.2 pg (26.0-34.0); MCHC 32.6 g/dL (28.0-37.0); MCV 80.4 fL (80.0-100.0); RBC 4.16 mil/uL (4.50-6.00); RDW 16.6 % (10.5-14.5); WBC 11.2 thou/uL (4.0-11.0)
--- NOTE | 2019-03-23 05:20 | NUR ---
PATIENT ALERT AND ORIENTED X4. C/O PAIN IN L HIP. SAT ON EDGE OF BED W/O PROBLEMS. BLOOD SUGAR WAS 160, RECIEVED 3 UNITS OF LISPRO INSULIN. DRESSING ON L HIP DRY AND INTACT. PT NOT VOIDED SINCE SURGERY. TRIED TO HAVE PT TRY TO GO BUT HE REFUSED. HE SAID HE WOULD GO IN THE MORNING. WILL CHECK LATER TO SEE IF HE WILL GO TO BATHROOM. SLEPT MOST OF NIGHT.
--- NOTE | 2019-03-23 07:23 | NUR ---
URINATED 550+ THIS AM. HEMAVAC PULLED, PT TOLERATED WELL. EDUCATED PATIENT WHAT TO LOOK FOR. PRESSURE APPLIED FOR A MINUTE. PRESSURE DRESSING APPLIED.
[2019-03-23 08:25] VITALS: BP 143/72
[2019-03-23 14:58] VITALS: BP 125/69
[2019-03-23 16:49] VITALS: BP 125/69
--- NOTE | 2019-03-23 16:52 | NUR ---
INITIAL ASSESSMENT: Pt evaluated for d/c planning needs. Reviewed chart and spoke with nurse, pt and pt's sister. Pt is alert and oriented. Pt lives in house with spouse, but has lots of steps. Pt plans on staying with his sister on d/c from hospital. Pt has CPAP and walker at home. Pt has had [facility] in the past and wants to use them again. Called [facility] and faxed referral. Will need to fax orders when available. Pt anticipates discharge on Tuesday. [facility] ([facility]) [phone]; fax [phone]
[2019-03-23 22:35] VITALS: BP 152/68
--- NOTE | 2019-03-24 03:54 | NUR ---
PATIENT ALERT AND ORIENTED X4. UP IN CHAIR MOST OF NIGHT. TRIED TO SLEEP IN BED PUT DID NOT TOLERATE WELL. C/O PAIN, MED GIVEN. UP TO BATHROOM WITH ASSIST AND WALKER. ACCUCHECK WAS 138, NO INSULIN GIVEN, SLEPT MOST OF NIGHT.
[2019-03-24 04:30] VITALS: BP 152/89
[2019-03-24 06:39] LABS: HEMATOCRIT 35.3 % (42.0-52.0); HEMOGLOBIN 11.6 gm/dL (14.0-18.0); MCH 26.3 pg (26.0-34.0); MCHC 32.8 g/dL (28.0-37.0); MCV 80.4 fL (80.0-100.0); RBC 4.39 mil/uL (4.50-6.00); WBC 10.3 thou/uL (4.0-11.0)
[2019-03-24 08:30] VITALS: BP 151/83
--- NOTE | 2019-03-24 15:33 | NUR ---
ASSUMED CARE OF PT AT 0700. PT BECAME VERY SOA AND DIAPHORESIS DURING PT AND HAD TO SIT IN A CHAIR OUTSIDE OF THE ROOM, WHILE VITALS WERE BEING OBSERVED. PT HAS REFUSED AFTERNOON PT AND OT. PER DOCTOR PT NEEDS TO COMPLY WITH PT/ OT IN ORDER TO DC. PER DOCTOR PT WANTS TO DISCONTINUE EXTENDED RELEASE PAIN MEDICATION, SEE EMAR. KNEE HIGH DOYLE HOSE, ANGELES DRESSING INTACT. WOUND IS CLEAN, DRY AND INTACT WITH NO DRAINAGE. HEMO VAC DRAIN WAS DC ALREADY. L HAND IV IS CLEAN, WITH NO DRAINGE. FALL PRECAUTIONS IN PLACE AND PT EDUCATED. CALL LIGHT WITHIN REACH. WILL CONTINUE TO MONITOR THE PT.
[2019-03-24 16:13] VITALS: BP 143/76
[2019-03-24 20:10] VITALS: BP 138/76
--- NOTE | 2019-03-25 03:19 | NUR ---
PATIENT ALERT AND ORIENTED X4. SLEEPS IN RECLINER IN ROOM. ACCUCHECK WAS 127, NO INSULIN COVERAGE NEEDED. LR RUNNING AT 21ML/MIN. C/O PAIN WHEN UP TO BATHROOM, OTHER THAN THAT SAYS PAIN IS A 2. SLEPT MOST OF NIGHT.
[2019-03-25 04:39] LABS: HEMATOCRIT 36.6 % (42.0-52.0); HEMOGLOBIN 11.8 gm/dL (14.0-18.0); MCH 26.1 pg (26.0-34.0); MCHC 32.3 g/dL (28.0-37.0); RBC 4.52 mil/uL (4.50-6.00); RDW 16.9 % (10.5-14.5); WBC 10.5 thou/uL (4.0-11.0)
[2019-03-25 09:46] VITALS: BP 146/69
--- NOTE | 2019-03-25 11:08 | NUR ---
PT CARE TAKEN OVER APPROX. 0700. A&Ox4. PT. IS DISCHARGING TODAY AND AWAITING HIS WHICH IS HIS RIDE. PT. IS NOT COMPLAINING OF ANY PAIN AND REFUSED PAIN MEDICATION AND ICE FOR HIS WOUND. ANGELES DRESSING DRY AND INTACT. WORKED WITH PHYSICAL THERAPY.
== END 2019-03-25 16:30 | disposition home or self-care (01) | DRG 470 ==
LOC: TBA 06:01 → 4S 06:01 → PRE 08:58 → 4S 14:45 → PRE 16:41 → 4S 03-25 16:30
PROVIDERS: ADMIT Orthopaedic Surgery
PROC: 0SRB06A Replacement of Left Hip Joint with Oxidized Zirconium on Polyethylene Synthetic Substitute, Uncemented, Open Approach (ICD-10-PCS; principal; 2019-03-22)
DX: M16.12 Unilateral primary osteoarthritis, left hip (principal); I10 Essential (primary) hypertension; E78.5 Hyperlipidemia, unspecified; E11.9 Type 2 diabetes mellitus without complications; I48.91 Unspecified atrial fibrillation; Z79.899 Other long term (current) drug therapy; Z82.49 Family history of ischemic heart disease and other diseases of the circulatory system; Z87.891 Personal history of nicotine dependence; Z79.82 Long term (current) use of aspirin
CPT/HCPCS: 10102; 10879; 50010; 50101; 50382; 50414; 50635; 51412; 53000; 53368; 56521; 56525; 56527; 57095; 62110; 62900; 70005

== ENCOUNTER 2019-03-25 23:27 | Inpatient (IN) | payer OTHER ==
[~2019-03-25] VITALS: Ht 182.9 cm; Wt 160.6 kg
[2019-03-25 23:27] VITALS: BP 144/82
[2019-03-26 00:33] LABS: WBC 13.8 thou/uL (4.0-11.0)
[2019-03-26 00:34] LABS: ABSOLUTE NEUTROPHILS 11.5 thou/uL (1.4-8.2); BASOPHILS 0.2 % (0.0-2.0); HEMATOCRIT 36.9 % (42.0-52.0); LYMPHOCYTES 6.7 % (24.0-44.0); MCH 25.9 pg (26.0-34.0); MCHC 32.6 g/dL (28.0-37.0); MCV 79.3 fL (80.0-100.0); MONOCYTES 9.4 % (1.0-8.0); PLATELET COUNT 355 thou/uL (150-400); POLYS 82.7 % (36.0-66.0); RBC 4.65 mil/uL (4.50-6.00); RDW 16.8 % (10.5-14.5)
[2019-03-26 00:39] LABS: ANION GAP 7 mmol/L (7-16); BUN 20 mg/dL (7-18); CHLORIDE 96 mmol/L (98-107); CO2 31 mmol/L (21-32); CREATININE 1.1 mg/dL (0.7-1.3); GLUCOSE 151 mg/dL (74-106); POTASSIUM 3.6 mmol/L (3.5-5.1); SODIUM 134 mmol/L (136-145)
[2019-03-26 00:49] LABS: ALBUMIN 2.9 g/dL (3.4-5.0); LIPASE 57 U/L (73-393); SGOT 37 U/L (15-37); SGPT 27 U/L (30-65); TOTAL BILIRUBIN 1.5 mg/dL (<0.1-1.0); TOTAL PROTEIN 7.5 g/dL (6.4-8.2); TROPONIN-I <0.06 ng/mL (<0.06)
[2019-03-26 03:15] VITALS: BP 178/88
[2019-03-26 03:50] VITALS: BP 128/71
--- NOTE | 2019-03-26 05:13 | NUR ---
PT ARRIVED TO THE UNIT FROM ER AT AROUND 0330HRS. PT IS HERE FOR PSBO. PT IS ALERT AND ORIENTED. RECENT L HIP SURGERY-ANGELES DRSG INTACT.HRR.PT ON ROOM AIR, USES CPAP AT NOC.PT ABDOMEN IS DISTENDED. C/O FEELING BLOATED. PT ALSO HAD NAUSEA AND DIARHOEA PRIOR TO COMING TO THE ER. PT IS CURRENTLY NPO.RATES PAIN AT ZERO AFTER GETTING MORPHINE IN ER.UP WITH SBA.REQUIRES HELP WITH [facility].IVF INFUSING VIA LAC.CALL LIGHT WITHIN REACH.
[2019-03-26 06:42] VITALS: BP 134/61
--- NOTE | 2019-03-26 06:46 | NUR ---
PT ARRIVED FROM VIA BED. IN STABLE CONDITION. ALL BELONGINGS WITH PT. PT PLACED ON MONITOR. WILL GIVE REPORT TO DAY SHIFT.
[2019-03-26 08:15] VITALS: BP 147/74
--- NOTE | 2019-03-26 09:43 | NUR ---
Received telephone call from [facility]. Updated them on pt's readmission.
[2019-03-26 10:11] LABS: HEMATOCRIT 36.9 % (42.0-52.0); HEMOGLOBIN 12.2 gm/dL (14.0-18.0); MCH 26.5 pg (26.0-34.0); MCHC 33.1 g/dL (28.0-37.0); MCV 80.2 fL (80.0-100.0); RBC 4.6 mil/uL (4.50-6.00); RDW 17.1 % (10.5-14.5); WBC 9.6 thou/uL (4.0-11.0)
[2019-03-26 10:25] LABS: % SATURATION 18 % (20-39); IRON 40 ug/dL (65-175); TIBC 223 ug/dL (250-450)
[2019-03-26 10:29] LABS: ALBUMIN 2.6 g/dL (3.4-5.0); CALCIUM 9.2 mg/dL (8.5-10.1); CREATININE 0.9 mg/dL (0.7-1.3); MAGNESIUM 1.8 mg/dL (1.8-2.4); POTASSIUM 3.5 mmol/L (3.5-5.1); TOTAL BILIRUBIN 1.4 mg/dL (<0.1-1.0); TOTAL PROTEIN 6.8 g/dL (6.4-8.2)
--- NOTE | 2019-03-26 10:36 | NUR ---
ASSESSMENT: CM REVIEWED CHART AND MET WITH PATIENT AT THE BEDSIDE. PT IS ALERT AND ORIENTED X4. PT WAS RECENTLY DISCHARGED ON 03/25 AND READMITTED ON 03/26 FOR POSSIBLE SBO. PT REPORTS THAT HE LIVES AT HOME WITH HIS AND DAUGHTER. PT STATES WHEN HE DISCHARGES THIS TIME HE IS GOING TO STAY WITH HIS SISTER FOR A WHILE BECAUSE SHE HAS NO STEPS HE HAS TO USE IN HER HOME. PT REPORTS HE HAS A CANE AND WALKER AT HOME HE CAN USE FOR AMBULATION. PT REPORTS HIS SISTERS HOME HAS A GRAB BAR AND SHOWER CHAIR. PT WAS SET UP WITH [facility] AT DISCHARGE. CM NOTIFIED [facility] THAT PT IS HERE AND FAXED UPDATED CLINICAL. CM WILL CONTINUE TO FOLLOW AND UPDATE [facility].
[2019-03-26 10:52] LABS: FOLIC ACID 17.4 ng/mL (8.6-58.9); TSH 1.299 uIU/mL (0.358-3.740)
--- NOTE | 2019-03-26 16:10 | NUR ---
Assumed care approx. 0700 this AM. Patient seen by Dr. Squires this AM. Diet changed from NPO to clear liquids. Patient has been tolerating water and sprite well. Patient still experiencing incontinent stools- bariatric commode in patient room. Maintenance fluids infusing. Pt up with walker and unsteady on feet. Harvey dressing intact. No complaints of pain-only with palpation of abdomen. updated at bedside and got to speak with Dr. Squires this AM. Pt slowly progressing toward plan of care goals.
[2019-03-26 17:45] VITALS: BP 137/61
[2019-03-26 20:31] VITALS: BP 159/85
--- NOTE | 2019-03-27 03:17 | NUR ---
Progressing towards outcome goals. Bowel movement 03/26 although incontinent. No nausea or vomiting. Tolerating clear liquids, wants diet advanced. IVFluids infusing. Vital signs and rhythm stable.Tolearting home CPAP. Up x 1 assist. Dribbles urine.
[2019-03-27 03:54] VITALS: BP 152/78
[2019-03-27 05:31] LABS: HEMATOCRIT 34.2 % (42.0-52.0); HEMOGLOBIN 11.2 gm/dL (14.0-18.0); MCH 26.2 pg (26.0-34.0); MCHC 32.6 g/dL (28.0-37.0); MCV 80.1 fL (80.0-100.0); RBC 4.27 mil/uL (4.50-6.00); WBC 7.4 thou/uL (4.0-11.0)
[2019-03-27 05:44] LABS: CALCIUM 8.5 mg/dL (8.5-10.1); CREATININE 0.9 mg/dL (0.7-1.3); MAGNESIUM 1.9 mg/dL (1.8-2.4); POTASSIUM 3.8 mmol/L (3.5-5.1)
[2019-03-27 08:03] VITALS: BP 152/74
--- NOTE | 2019-03-27 12:35 | NUR ---
Changed to med surg status.
[2019-03-27 14:00] VITALS: BP 122/76
--- NOTE | 2019-03-27 15:00 | NUR ---
Hydrocodone 10mg/325mg given po for c/o left hip pain prior to discharge. called pharmacy to make sure pain medication script was filled and ready.
--- NOTE | 2019-03-27 15:20 | NUR ---
Dr. Nettles's office called per family/patient request to clarify discharge instructions. Dr. Nettles was not aware pt was readmitted 24 hours after discharge. Follow up appt clarified and discharge instructions given to patient and spouse.
--- NOTE | 2019-03-27 16:00 | NUR ---
IV dc'd left forearm. Pt assisted with dressing and taken to front entrance of medical mall via wheelchair to meet . Pt discharged to home to follow up with Dr. Nettles Mar 29. Dr. Nettles's office will call patient to check on him tomorrow.
[2019-03-27 16:15] VITALS: BP 122/76
--- NOTE | 2019-03-27 16:50 | EKG ---
[address] [place] [address] ELECTROCARDIOGRAM REPORT Name: SHAI SOTELO Room #: 359-P [facility] IN .R.#: [id number] Admission: 03/26/19 Attend Phys: Melvin Sampson MD Discharge: 03/27/19 Date of : 60 Report #: [id number] THIS REPORT FOR: //name// [facility] ED Test Date: 2019-03-25 Test Time: 23:51:55 Pat Name: SHAI SOTELO Department: Room: [facility] Gender: M Senior Procurement Manager: capo : 1960 Requested By: Anupam Fitch Order Number: [id number] MD: Kenneth Michelle Measurements Intervals [place] Rate: 71 P: 67 [place]: 193 QRS: 6 QRSD: 103 T: 56 QT: 452 QTc: 492 Interpretive Statements Sinus rhythm Borderline prolonged QT interval Compared to ECG 01/11/2019 10:21:10 No significant changes Electronically Signed On 03-27-2019 16:49:54 CHIEF LOCK OPERATOR by Kenneth Michelle [email or web address] <ELECTRONICALLY SIGNED> By: Kenneth Michelle MD, [facility] 03/27/19 1649 235 50 Kenneth Michelle MD, [facility] /EPI
== END 2019-03-27 16:18 | disposition home or self-care (01) | DRG 389 ==
LOC: ER 23:27 → EROBS 03-26 02:41 → 3W 03-26 02:41 → 4S 03-26 03:31 → 3W 03-26 06:37
PROVIDERS: Emergency Medicine; ADMIT Internal Medicine
PROC: 5A09357 Assistance with Respiratory Ventilation, Less than 24 Consecutive Hours, Continuous Positive Airway Pressure (ICD-10-PCS; principal; 2019-03-26)
DX: K56.609 Unspecified intestinal obstruction, unspecified as to partial versus complete obstruction (principal); I48.20 Chronic atrial fibrillation, unspecified; Z68.42 Body mass index [BMI] 45.0-49.9, adult; Z96.643 Presence of artificial hip joint, bilateral; I10 Essential (primary) hypertension; G47.33 Obstructive sleep apnea (adult) (pediatric); E66.01 Morbid (severe) obesity due to excess calories; E78.5 Hyperlipidemia, unspecified; E11.9 Type 2 diabetes mellitus without complications; Z79.899 Other long term (current) drug therapy; Z79.82 Long term (current) use of aspirin; Z79.84 Long term (current) use of oral hypoglycemic drugs; Z82.49 Family history of ischemic heart disease and other diseases of the circulatory system; Z83.3 Family history of diabetes mellitus; Z83.438 Family history of other disorder of lipoprotein metabolism and other lipidemia; Z87.891 Personal history of nicotine dependence; Z79.01 Long term (current) use of anticoagulants
CPT/HCPCS: 10879

== ENCOUNTER 2019-03-29 14:18 | Inpatient (IN) | payer OTHER ==
[~2019-03-29] VITALS: Ht 182.9 cm; Wt 145.6 kg
[2019-03-29 14:20] VITALS: BP 139/72
[2019-03-29 15:05] LABS: ABSOLUTE NEUTROPHILS 6.5 thou/uL (1.4-8.2); BASOPHILS 0.4 % (0.0-2.0); EOSINOPHILS 1.4 % (0.0-3.0); HEMATOCRIT 35.8 % (42.0-52.0); HEMOGLOBIN 11.8 gm/dL (14.0-18.0); MCH 26.2 pg (26.0-34.0); MCHC 32.9 g/dL (28.0-37.0); MCV 79.9 fL (80.0-100.0); MONOCYTES 10.8 % (1.0-8.0); PLATELET COUNT 378 thou/uL (150-400); POLYS 71.4 % (36.0-66.0); RBC 4.48 mil/uL (4.50-6.00); RDW 16.5 % (10.5-14.5); WBC 9.1 thou/uL (4.0-11.0)
[2019-03-29 15:09] LABS: CALCIUM 9.2 mg/dL (8.5-10.1); POTASSIUM 3.4 mmol/L (3.5-5.1)
[2019-03-29 15:10] LABS: MAGNESIUM 1.7 mg/dL (1.8-2.4)
[2019-03-29 16:17] VITALS: BP 139/72
[2019-03-29 17:10] VITALS: BP 141/51
[2019-03-29 17:30] VITALS: BP 128/58
--- NOTE | 2019-03-29 18:21 | NUR ---
ASSUMED CARE OF PATIENT APPROX 1700. PATIENT A&OX4, VSS, PAIN IN LEFT HIP. PATIENT DOES NOT WANT PAIN MEDICATION AT THIS TIME. PATIENT NPO D/T POSSIBLE SURGERY IN AM. NO C/O N/V AT THIS TIME. PATIENT HAS ANXIETY AWAITING CONSULT WITH SURGEON. NO SIGNS OF DISTRESS. ANGELES DRESSING INTACT WITH DRAINAGE, SUCTION WORKING. WILL CONTINUE TO MONITOR.
[2019-03-29 20:00] VITALS: BP 121/56
--- NOTE | 2019-03-30 02:30 | NUR ---
ASSESSMENT: PT REMAIN ALERT AND ORIENT TIMES FOUR. UP WITH SBA TO BR. DENIES PAIN. PT IS CURRENTLY NPO. ALL HOME MEDS WERE BEING HELD AT THIS TIME UNTIL POST PROCEDURE OF SMALL BOWEL SERIES. VSS, AFEBRILE. BLOOD SUGAR WAS 82 THIS HS. PT SLEEPING IN THE RECYLINER DURING THE NIGHT. ANGELES DRESSING NOTED WITH SMALL DRAINAGE, OPERATING PROPERLY. SLOW PROGRESS TOWARDS DC GOALS, WILL CONTINUE TO MONITOR.
[2019-03-30 05:24] LABS: HEMATOCRIT 33.6 % (42.0-52.0); HEMOGLOBIN 10.9 gm/dL (14.0-18.0); MCH 25.9 pg (26.0-34.0); MCHC 32.3 g/dL (28.0-37.0); RBC 4.2 mil/uL (4.50-6.00); RDW 16.9 % (10.5-14.5); WBC 7.3 thou/uL (4.0-11.0)
[2019-03-30 05:42] LABS: CALCIUM 8.8 mg/dL (8.5-10.1); POTASSIUM 3.3 mmol/L (3.5-5.1)
[2019-03-30 08:00] VITALS: BP 140/74
--- NOTE | 2019-03-30 10:29 | NUR ---
Nutrition: Pt meets criteria for severe malnutrition. REC change IVFs to Clinimix PPN at 125 mL/hr with 250 mL 20% lipids daily to meet 58-112% of needs to assist in preventing further nutritional decline/muscle breakdown.
--- NOTE | 2019-03-30 14:38 | NUR ---
CONSULT [phone] COMPLETED BY THIS MANGLE PRESS CATCHER. wE DID LIFE REVIEW AND DISCUSSED HIS POST-SURGERY COMPLICATION. WE DISCUSSED THE CHALLENGES OF IT. WE DISCUSSED THE BLESINGS HE HAS. HE HAS A VERY STRONG SUPPORT NETWORK OF FAMILY AND CONGREGATIONAL FRIENDS. WE CONCLUDED IN PRAYER.
[2019-03-30 14:59] VITALS: BP 152/69
--- NOTE | 2019-03-30 20:24 | NUR ---
PAGED BY 4W NURSE TO PL[address] A PICC FOR TPN ON THIS PT LATE IN THE DAY. APPROACHED PT AND HE REFUSED IT AT THIS TIME. HE WANTS TO SPEAK WITH THE MD ABOUT IT. NO OFFICIAL ORDER FOR PICC IN COMPUTER AT THIS TIME BUT HE DOES HAVE A TPN ORDER. WILL ADVISE NEXT VAS RN COMING TOMORROW
--- NOTE | 2019-03-30 20:44 | NUR ---
PATIENT HAD SMALL BOWELL SERIES TODAY. CONTINUED IV FLUIDS ORDERED. PATIENT VERY FRUSTRATED THIS AFTERNOON STATING NO ONE IS TELLING ME WHAT IS GOING ON. THIS RN EXPLAINED THE SBS SHOWED PARTIAL SMALL BOWELL OBSTRUCTION AND THE TREATMENT FOR THAT IS TO REST THE BOWELL. PATIENT STATED HAS HAD NOTHING TO EAT FOR 9 DAYS AND IS CONCERNED ABOUT HIS NUTRITION. CALLED SBS REPORT TO DR. OVIEDO (POWERTRAIN CONTROL SYSTEMS ENGINEER FOR DR. HUTCHINSON). RECEIVED ORDER TO START TPN AND PLACE PICC LINE. PATIENT REFUSED PICC LINE STATING HE WANTS TO TALK TO THE TOMORROW BEFORE HE DOES THIS. ALSO RECEIVED ORDER FOR PPN FOR OVERNIGHT UNTIL DECISION IS MADE REGARDING WHETHER HE WILL NEED SURGERY OR NOT. EXPLAINED IF HE NEEDS SURGERY HE WILL STILL BE NPO FOR A FEW DAYS. STILL WANTS TO WAIT TO TALK TO TOMORROW. UP WITH STANDBY ASSISTANCE WITH USE OF WALKER. STEADY GAIT. REPORT GIVEN TO MAXI.
--- NOTE | 2019-03-31 02:08 | NUR ---
PT CARE ASSUMED AT 19:00 WITH FAMILY AND IN CHAIR RELAXING.PT IS A/O X4.PT IS UP WITH SBA WITH WALKER.PT DENIED NAUSEA AND VOMITING.PT IS NPO BUT CAN HAVE ICE CHIPS.PT IS ON ROOM AIR AND USES CPAP AT NIGHT.PT IS ON PPN AT 80CC/HR.PT REFUSED PICC LINE YESTERDAY AND WANTS IT AFTER RADIOLOGY AND DOCTOR EVALUATION.PT DECIDED TO SPEND NIGHT IN CHAIR.PT HAD LT ALIREZA FEB 2019 AND HAS A ANGELES DRESSING IN PLACE.DR MONTES WILL SEE THIS MORNING.CONTINUE POC
[2019-03-31 04:36] VITALS: BP 170/78
[2019-03-31 04:37] LABS: MAGNESIUM 1.9 mg/dL (1.8-2.4); PHOSPHORUS 3.6 mg/dL (2.5-4.9)
[2019-03-31 04:40] LABS: ALBUMIN 2.6 g/dL (3.4-5.0); CALCIUM 8.4 mg/dL (8.5-10.1); CREATININE 0.8 mg/dL (0.7-1.3); TOTAL BILIRUBIN 0.7 mg/dL (<0.1-1.0); TOTAL PROTEIN 6.5 g/dL (6.4-8.2)
[2019-03-31 05:01] LABS: POTASSIUM 2.9 mmol/L (3.5-5.1)
--- NOTE | 2019-03-31 06:21 | NUR ---
PT HAD A CRITICAL POTASSIUM LEVEL OF 2.9.SALLY NOTIFIED AND POTASSIUM INFUSION OREDERED AND STARTED.POTASSIUM LAB VALUE MIN RECHECKED IN HR AND ORDER PUT IN.
[2019-03-31 07:10] VITALS: BP 149/67
--- NOTE | 2019-03-31 12:37 | NUR ---
SPOKE TO THIS PATIENTS NURSE THIS AM TPN WAS ORDERED YESTERDAY AND IS NOW ON HOLD THE PATIENT REFUSED PICC LINE PLACEMENT LAST NIGHT. NO ORDER IN SYSTEM FOR A PICC LINE AT THIS TIME. ADVISED DONNA ROLLE TO PAGE THE VASCULAR ACCESS NURSE IF A PICC LINE IS ORDERED FOR TPN AND IF AND WHEN THE PATIENT DECIDES TO CONSENT TO PLACEMENT. AT THIS TIME IT IS NOTED THAT THE PATIENT IS ON PPN AND THE TPN IS STILL ON HOLD
[2019-03-31 15:23] VITALS: BP 155/67
--- NOTE | 2019-03-31 19:51 | NUR ---
Assumed pt care at 7am.Pt up in chair very andgry and frustrated about being in hospital for the past 9days without food.Emotional support given and warehouse order puller notified.Chiquis perez rn came and talked to pt with Dr Nettles in room.Pt was pleased and Dr Fam notified.He rounded on pt and order noted. Pt tolerated soft diet at dinner and brought in health shake also.Pt refused tpn and Dr Fam aware.Pt later ambulated in hallways with therapist today.Good endurance noted.Pt still on ppn. Will continue to monitor.
[2019-03-31 20:16] VITALS: BP 154/69
--- NOTE | 2019-04-01 03:47 | NUR ---
PT IS A/O X4.PT IS UP WITH SBA TO THE BATHROOM WITH WALKER AND GAIT BELT.PT HAD A LT THR ABOUT A WEEK AGO AND HAS A ANGELES DRESSING.PT REFUSED PICC LINE AND TPN.PT IS ON PPN AT 80CC/HR.PT IS A SOFT DIET PRESENTLY TOLERATED.PT ON MORPHINE FOR PAIN MGT .PT IS ACCUCHECK ACHS.PT IS ON CPAP AT NIGHT AND ROOM AIR DURING THE DAY.CONTINUE PLAN OF CARE
[2019-04-01 04:40] VITALS: BP 168/70
[2019-04-01 05:46] LABS: CALCIUM 8.1 mg/dL (8.5-10.1); CREATININE 0.8 mg/dL (0.7-1.3); MAGNESIUM 1.8 mg/dL (1.8-2.4); PHOSPHORUS 3.5 mg/dL (2.5-4.9); POTASSIUM 3.2 mmol/L (3.5-5.1)
--- NOTE | 2019-04-01 06:55 | NUR ---
PT HAD A POTASSIUM LEVEL OF 3.3 ,SALLY RUBALCAVA AND PT IS PRESENTLY ON KCL INFUSION
[2019-04-01 08:00] VITALS: BP 158/84
--- NOTE | 2019-04-01 14:22 | NUR ---
ASSUMED CARES AT 0700. PT AWAKE, ALERT AND ORIENTED*4. DENIES PAIN. VITALS REMAIN STABLE. PT EATING WELL, 50-75% PER MEAL, AND TOLERATING WELL. PPN DISCONTINUED PER DR'S ORDER, IV FLUIDS DC'D. BG REMAINS STABLE. ANGELES DRESSING ON LEFT HIP REMAINS INTACT. PT UP WITH SBA AND WALKER, AMBULATED WITH PHYSICAL THERAPIST AND TOLERATED WELL. Q1H VISUAL CHECKS. CALL LIGHT WITHIN REACH. FALL PRECAUTIONS IN PLACE
[2019-04-01 15:00] VITALS: BP 158/83
[2019-04-01 20:15] VITALS: BP 174/88
--- NOTE | 2019-04-02 04:15 | NUR ---
ASSESSMENT: PT REMAIN ALERT AND ORIENT TIMES FOUR. SLEEPS IN RECYLINER., C/O LEFT HIP PAIN. PRN PAIN MEDS PROVIDE ADEQUATE RELIEF. CPAP AT NOC. NO FURTHER COMPLAINTS. SLOW PROGRESS TOWARDS DC GOALS, WILL CONTINUE TO MONITOR.
[2019-04-02 07:23] LABS: CALCIUM 8.9 mg/dL (8.5-10.1); CREATININE 0.9 mg/dL (0.7-1.3); MAGNESIUM 1.8 mg/dL (1.8-2.4); PHOSPHORUS 3.7 mg/dL (2.5-4.9); POTASSIUM 4.1 mmol/L (3.5-5.1)
[2019-04-02 08:59] VITALS: BP 149/89
[2019-04-02 10:34] VITALS: BP 149/89
--- NOTE | 2019-04-02 13:00 | NUR ---
Patient discharged today at approximately 1130. He verbalized an understanding to all discharge instructions before signing paperwork. Vitals signs stable, abdomen soft and non-tender,bowel sounds x's 4, LSCTA, he denies pain. POC followed.
--- NOTE | 2019-04-02 16:43 | NUR ---
CM FOLLOWED UP WITH PT THIS DAY. PT INDICATED HE HAD WORKED WITH PT AND HAD PROGRESSED TO HIS CANE. PT INDICATED ALTHOUGH HE HAD BEEN SET UP TO HAVE HOME HEALTH PREVIOUSLY HE DIDN'T FEEL HE NEEDED UPON DC TODAY. PT DISCHARGED HOME TO HIS HOUSE WITH NO NEEDS. PT INDICATED HE HAS A FOLLOW UP ORTH Tuesday. NO OTHER CM INTERVENTION INDICATED. CASE CLOSED.
== END 2019-04-02 13:14 | disposition home or self-care (01) | DRG 388 ==
LOC: ER 14:18 → 4W 15:55 → EROBS 15:55 → 4W 16:43 → ENTRNSPT 04-02 12:18 → EDTRNSPTSTS 04-02 12:20 → 4W 04-02 13:14
PROVIDERS: Emergency Medicine; Family Medicine; ADMIT Hospitalist
DX: K56.600 Partial intestinal obstruction, unspecified as to cause (principal); E43 Unspecified severe protein-calorie malnutrition; E86.0 Dehydration; Z96.642 Presence of left artificial hip joint; E87.6 Hypokalemia; E11.9 Type 2 diabetes mellitus without complications; I10 Essential (primary) hypertension; G47.33 Obstructive sleep apnea (adult) (pediatric); K56.7 Ileus, unspecified; I48.91 Unspecified atrial fibrillation; Z79.01 Long term (current) use of anticoagulants; Z79.84 Long term (current) use of oral hypoglycemic drugs
CPT/HCPCS: 10040

== ENCOUNTER 2020-02-15 14:24 | Inpatient (IN) | payer OTHER ==
[~2020-02-15] VITALS: Ht 180.3 cm; Wt 147.4 kg
[2020-02-15 14:24] VITALS: BP 144/94
[2020-02-15] MEDS ORDERED: SILDENAFIL CIT100 MG PO (14:44)
[2020-02-15 15:24] LABS: ABSOLUTE NEUTROPHILS 8.1 thou/uL (1.4-8.2); BASOPHILS 0.9 % (0.0-2.0); EOSINOPHILS 0.8 % (0.0-3.0); HEMATOCRIT 36.7 % (42.0-52.0); LYMPHOCYTES 13.7 % (24.0-44.0); MCH 25.2 pg (26.0-34.0); MCHC 32.6 g/dL (28.0-37.0); MCV 77.1 fL (80.0-100.0); MONOCYTES 7.3 % (1.0-8.0); PLATELET COUNT 250 thou/uL (150-400); POLYS 77.3 % (36.0-66.0); RBC 4.76 mil/uL (4.50-6.00); RDW 17.4 % (10.5-14.5); WBC 10.5 thou/uL (4.0-11.0)
[2020-02-15 15:36] LABS: CALCIUM 8.9 mg/dL (8.5-10.1); CREATININE 1.6 mg/dL (0.7-1.3); POTASSIUM 3.8 mmol/L (3.5-5.1)
[2020-02-15 15:46] LABS: TROPONIN-I 0.08 ng/mL (<0.06)
[2020-02-15 16:52] VITALS: BP 110/77
[2020-02-15 17:30] VITALS: BP 110/77
[2020-02-15 19:50] VITALS: BP 100/75
--- NOTE | 2020-02-15 19:55 | NUR ---
PT CARE ASSUMED AT 1730. ASSESSMENT CHARTED. MEDICATION CHARTED. PT HAS NOT BEEN TAKING MEDICATIONS AT HOME; STATES THAT HE DOES NOT HAVE INSURANCE. PT IS UP AD NICOL. RAC IV. TOILET. DM; ACHS. CARDIZEM AT 10 MLS/HR. CPAP @ .
[2020-02-16] VITALS: BP 146/83
[2020-02-16 03:30] VITALS: BP 128/85
--- NOTE | 2020-02-16 03:38 | NUR ---
PT ALERT AND ORIENTED. DENIES CHEST PAIN, SOB, NAUSEA OR VOMITING. SECOND TROPONIN 0.07 FROM PREVIOUS 0.08. REMAINS AFIB ON THE MONITOR. CARDIZEM DRIP MAINTAINED AT 10MLS/HR. VITALS STABLE. HOME PERSONAL AND CPAP INITIATED BY RT. WILL CONTINUE TO MONITOR
[2020-02-16 04:40] LABS: ABSOLUTE NEUTROPHILS 7.3 thou/uL (1.4-8.2); BASOPHILS 0.6 % (0.0-2.0); EOSINOPHILS 1.4 % (0.0-3.0); HEMATOCRIT 36.7 % (42.0-52.0); HEMOGLOBIN 11.5 gm/dL (14.0-18.0); MCH 24.4 pg (26.0-34.0); MCHC 31.5 g/dL (28.0-37.0); MCV 77.5 fL (80.0-100.0); PLATELET COUNT 274 thou/uL (150-400); RBC 4.73 mil/uL (4.50-6.00); WBC 10.7 thou/uL (4.0-11.0)
[2020-02-16 04:50] LABS: CHOLESTEROL 140 mg/dL (<200); HDL CHOLESTEROL 23 mg/dL (>40); LDL CHOLESTEROL 100 mg/dL (<100); TC:HDL 6.1 Ratio (Not establshd); TRIGLYCERIDE 89 mg/dL (<150); VLDL 18 mg/dL (<40)
[2020-02-16 04:51] LABS: SERUM ASSESSMENT Clear
[2020-02-16 04:53] LABS: ANION GAP 9 mmol/L (7-16); BUN 29 mg/dL (7-18); CALCIUM 8.8 mg/dL (8.5-10.1); CHLORIDE 103 mmol/L (98-107); CO2 26 mmol/L (21-32); CREATININE 1.6 mg/dL (0.7-1.3); GLUCOSE 130 mg/dL (74-106); MAGNESIUM 2.3 mg/dL (1.8-2.4); POTASSIUM 3.8 mmol/L (3.5-5.1); SODIUM 138 mmol/L (136-145); TROPONIN-I <0.06 ng/mL (<0.06)
[2020-02-16 07:51] VITALS: BP 139/87
--- NOTE | 2020-02-16 08:00 | NUR ---
PT RESTING IN CHAIR ON HOME CPAP. ASSESSMENT COMPLETE. PT IS PLEASENT. NO VOICED CONERNS AT THIS TIME
--- NOTE | 2020-02-16 10:00 | NUR ---
PT TO BED FOR ECHO.
--- NOTE | 2020-02-16 10:23 | NUR ---
PT BACK UP IN CHAIR. ECHO COMPLETE
[2020-02-16 11:26] VITALS: BP 125/86
--- NOTE | 2020-02-16 14:41 | NUR ---
PT RESTING IN CHAIR. NO VOICED CONCERNS AT THIS TIME
[2020-02-16 16:03] VITALS: BP 119/85
--- NOTE | 2020-02-16 16:17 | NUR ---
WHEN MASK DESIGNER WAS IN ROOM TO DO VS PT TOLD HER HE HAD BEEN HAVING SOME CHEST TIGHTNESS HERE IN THE LAST HR OR SO BUT IT IS NOW GONE. WHEN I QUESTIONED PT ABOUT CHEST TIGHTNESS HE STATES THAT THE TIGHTNESS IN THE CENTER OF HIS CHEST AND SHORTNESS OF AIR IS THE SAME FEELINGS HE WAS HAVING WHEN HE CAME INTO THE HOSPITAL. HE STATES HE IS NO LONGER HAVING THE SYMPTOMS. ASKED HIM IF HE WOULD LIKE ME PO PERSUE THIS AND DO A CARDIAC WORKUP ON HIM. PT DENIES. STATES HE THINKS ITS JUST ANXIETY FROM THE DAY FROM MISSING HIS SONS [place]. INFORMED PT IF HE HAS THESE SYMPTOMS AGAIN TO PLEASE NOTIFY ME OR THE MASK DESIGNER. HE STATES HIS UNDERSTANDING.
--- NOTE | 2020-02-16 16:40 | NUR ---
PT WAS HEARD YELLING AT GRAVEL INSPECTOR FROM THE NURSES DESK. ENTERED ROOM. PT IS UPSET THAT HIS SISTER IS DOWNSTAIRS AND HE DOESN'T UNDERSTAND WHY SHE CAN'T COME UP AND VISIT. EXPLAINED TO PT THE ONLY ONE DESIGNATED VISITOR IS ALLOWED FOR THE HOSPITAL STAY. ITS THE POLICY WITH COVID. PT STATES THAT I'M JUST MAKING THIS SHIT UP AND THAT HE WANTS HIS SISTER UP HER NOW. TOLD HIM THE POLICY AGAIN AND THAT IF HE WANTS TO CHANGE HIS VISITOR THAT HIS IS UNABLE TO COME BACK. PT IS GETTING UPSET, YELLING AT ME. I CALMLY TOLD HIM I AM NOT GOING TO ARGUE WITH HIM. SISTER CALLED WHEN PT WAS YELLING, STATING THAT SHE IS LEAVING. PT IS THEN BLAMING ME FOR SISTER LEAVING. MAKES COMMENT THAT MAYBE HE WILL JUST LEAVE TOO. TOLD PT I DO NOT WANT TO ARGUE WITH HIM. LEFT ROOM. SECURITY WAS CALLED. THEY WENT IN WITH THE VISITOR POLICY IN HAND. TALKED WITH PT. WHEN THEY CAME BACK OUT PT STATED THAT HE DOESN'T WANT ANY VISITORS ANYMORE. CHANGED HIS DESIGNATED VISITOR TO NO ONE IN THE CHART AND NOTIFIED BOOM CAT OPERATOR.
--- NOTE | 2020-02-16 17:50 | NUR ---
SEE PREVIOUS NOTES FOR EVENTS THORUGHOT THE DAY. PT WAS PLESANT THIS AM BUT THE DAY HAS GONE ON PT HAD GOTTEN SLIGHTLY MORE AGITATED UNTIL HIS SISTER COULD NOT COME UP AND VISIT. PLEASE SEE PREVIOUS NOTES.
[2020-02-16 19:32] VITALS: BP 122/75
--- NOTE | 2020-02-16 22:34 | 2DMMODE ---
[facility] [place] [address] 2 D/M-MODE ECHOCARDIOGRAM Name: SHAI SOTELO Brittani Room #: 214-P ADM IN M.R.#: [id number] Admission: 02/15/20 Attend Phys: Apurva Alfonso MD Discharge: Date of : 60 Report #: [id number] THIS REPORT FOR: cc: Espinoza Mckeon James A. DO Park, Jin S. MD ~ APPROVED REPORT Study performed: 02/16/2020 09:35:47 EXAM: Comprehensive 2D, Doppler, and color-flow Echocardiogram Patient Location: Bedside Room #: 214 Status: routine BSA: 2.57 HR: 91 bpm BP: 139/87 mmHg Rhythm: Atrial Fibrillation Other Information Study Quality: Technically Difficult Technically limited study due to body habitus. Indications Diabetes Atrial Fibrillation Hypertension/HDD HLD Echo Enhancing Agent Indication: Endocardial border delineation Agent(s) / Amount(s) Used: Optison 3 cc 2D Dimensions RVDd: 49.91 mm IVSd: 17.16 (7-11mm) LVOT Diam: 24.25 (18-24mm) LVDd: 55.74 mm PWd: 17.12 (7-11mm) Ascending Ao: 39.69 (22-36mm) LVDs: 44.60 (25-40mm) Aortic Root: 38.88 mm IVC: 28.00 mm Volumes Left Atrial Volume (Systole) [facility] [address] [place] [address] 2 D/M-MODE ECHOCARDIOGRAM Name: SHAI SOTELO Room #: 214-P ADM IN ..#: [id number] Admission: 02/15/20 Attend Phys: Ruthy Hodges Discharge: Date of : 60 Report #: [id number] Single Plane 4CH: 93.58 mL Single Plane 2CH: 108.79 mL LA ESV Index: 44.00 mL/m2 Aortic Valve AoV Peak Valeriano.: 1.22 m/s AO Peak Gr.: 5.95 mmHg LVOT Max P.69 mmHg LVOT Max V: 0.64 m/s TARYN Vmax: 2.43 cm2 Mitral Valve MV Decel. Time: 142.79 ms MV E Max Valeriano.: 1.12 m/s IVRT: 51.90 ms Pulmonary Valve PV Peak Valeriano.: 0.76 m/s PV Peak Gr.: 2.33 mmHg Tricuspid Valve TR Peak Valeriano.: 3.24 m/s RAP Estimate: 15.00 mmHg TR Peak Gr.: 42.10 mmHg PA Pressure: 57.00 mmHg Left Ventricle Left ventricle is at the upper limits of normal. Moderate concentric left ventricular hypertrophy. Left ventricular systolic function is moderate to severely decreased. LVEF is 30-35%. This study is not technically sufficient to allow evaluation of the LV diastolic function due to atrial fibrillation. Right Ventricle Right ventricle is dilated. Atria Left atrium is moderately dilated. Right atrium is moderately dilated. Aortic Valve The aortic valve is normal in structure. Mild aortic regurgitation. There is no aortic valvular stenosis. Mitral Valve The mitral valve is normal in structure. Moderate to severe mitral regurgitation No evidence of mitral valve stenosis. Tricuspid Valve The tricuspid valve is normal in structure. Moderate tricuspid [facility] [address] [address] 2 D/M-MODE ECHOCARDIOGRAM Name: SHAI SOTELO Room #: 214-P ADM IN [facility].#: [id number] Admission: 02/15/20 Attend Phys: Ruthy Hodges Discharge: Date of : 60 Report #: [id number] regurgitation. PAP is estimated at 57 mmHg. Pulmonic Valve Pulmonic valve is not well visualized. Great Vessels The aortic root is normal in size. Ascending aorta is upper limits of normal at 4.0cm. IVC is dilated and collapses <50% with inspiration. Pericardium There is no pericardial effusion. <Conclusion> Left ventricle is at the upper limits of normal. Moderate concentric left ventricular hypertrophy. Left ventricular systolic function is moderate to severely decreased. Right ventricle is dilated. Left atrium is moderately dilated. Mild aortic regurgitation. Moderate to severe mitral regurgitation Moderate tricuspid regurgitation. PAP is estimated at 57 mmHg. <ELECTRONICALLY SIGNED> By: Rick Underwood MD 02/16/202233 33 33 Rick Underwood MD /MARY ELLEN
--- NOTE | 2020-02-17 03:39 | NUR ---
CARE ASSUMED 1900. PT ALERT AND ORIENTED. VITALS STABLE. DENIES CHEST PAIN, NAUSEA OR VOMITING. MAINTAINED ON CARDIZEM DRIP AT 10 ML/HR. PT STILL IN AFIB. OTHER ASSESSMENTS DOCUMENTED. PT STILL INSIST HE DOES NOT WANT VISITORS. WILL CONTINUE TO MONITOR
[2020-02-17 05:50] VITALS: BP 139/96
[2020-02-17 08:05] VITALS: BP 149/95
[2020-02-17 11:30] VITALS: BP 122/71
[2020-02-17 15:48] LABS: URINE BILIRUBIN NEGATIVE (Negative); URINE BLOOD NEGATIVE (Negative); URINE CLARITY CLEAR; URINE COLOR YELLOW; URINE GLUCOSE-RANDOM* NEGATIVE (Negative); URINE KETONES NEGATIVE (Negative); URINE LEUKOCYTES NEGATIVE (Negative); URINE NITRITE NEGATIVE (Negative); URINE PROTEIN (DIPSTICK) NEGATIVE (Negative); URINE UROBILINOGEN 0.2 E.U./dl (0.2-1.0)
[2020-02-17 15:54] LABS: PROT/CREAT RATIO 0.6; URINE CREATININE-RANDOM* 17.7 mg/dL
[2020-02-17 16:30] VITALS: BP 149/73
[2020-02-17 17:23] VITALS: BP 149/73
--- NOTE | 2020-02-17 17:49 | NUR ---
ASSUMED CARE OF PT AT SHIFT CHANGE. ASSESSMENTS CHARTED. MEDS GIVEN PER JUL. PT A&OX4, NO C/O PAIN OR SOA. PT ON 5L CPAP OFF AND ON DURING THE SHIFT. CATH PROCEDURE PLANNED FOR TOMORROW. NEPHROLOGY CONCERNED ABOUT CONTRAST. AFIB ON MONITOR WITH OCCASIONAL PERIODS OF SR. CARDIZEM DRIP CONTINUES AT 10. WILL CONTINUE TO MONITOR AND FOLLOW POC.
[2020-02-17 19:59] VITALS: BP 108/70
[2020-02-18] VITALS (10 sets, daily range): BP systolic 117–150; BP diastolic 71–96
[2020-02-18 03:56] LABS: ALBUMIN 2.7 g/dL (3.4-5.0); CALCIUM 8.5 mg/dL (8.5-10.1); CREATININE 1.5 mg/dL (0.7-1.3); PHOSPHORUS 3.9 mg/dL (2.5-4.9); POTASSIUM 3.4 mmol/L (3.5-5.1)
[2020-02-18 04:00] LABS: HEMATOCRIT 35.7 % (42.0-52.0); HEMOGLOBIN 11.5 gm/dL (14.0-18.0); MCH 24.7 pg (26.0-34.0); MCHC 32.3 g/dL (28.0-37.0); MCV 76.5 fL (80.0-100.0); RBC 4.66 mil/uL (4.50-6.00); RDW 17.4 % (10.5-14.5)
--- NOTE | 2020-02-18 07:20 | HC ---
[facility] [place] [address] CONSULTATION Name: SHAI SOTELO Room #: 214-P ADM IN M.R.#: [id number] Admission: 02/15/20 Attend Phys: Apurva Alfonso MD Discharge: Date of : 60 Report #: [id number] THIS REPORT FOR: cc: Espinoza Mckeon,Curtis Curry MD ~ CC: Apurva Mckeon DATE OF SERVICE: 02/17/2020 REASON FOR CONSULTATION: Elevated creatinine level. HISTORY OF PRESENT ILLNESS: This is a 60-year-old male who presented with volume overload, symptoms of heart failure, and atrial fibrillation. He has had previous episodes of atrial fibrillation. He had some rapid ventricular response. He was put on a Cardizem drip. He has been anticoagulated. His last episode was about a year ago. He had an echocardiogram done, which showed an ejection fraction only in the 30-35% range, which is apparently a significant decrease related to a year ago. The patient also has a history of about 15 years of hypertension and type 2 diabetes. He knows of no prior proteinuria nor any elevated creatinine levels. We do have some labs on the computer showing a creatinine level throughout 2019 generally in the 1.0-1.1 range. He had some levels of 0.8. There was a single value from 2016 at 1.1. The patient is followed by Dr. Mckeon, who is his primary doctor. He never remembers hearing Dr. Mckeon saying anything about an elevated creatinine level, proteinuria, or any abnormal renal function. He was admitted and his creatinine level over the past couple of days is 1.6. It was not drawn today. The patient has no trouble voiding urine. He has a urinal at bedside totally full of yellow clear urine. No urinalysis has been done at this time. I did look back at an old CT scan from a year ago, which showed normal appearing kidneys at that time without any evidence of hydronephrosis or obstructive changes. In talking with the patient, he previously was on a grouping of medications, which included losartan, some furosemide for volume control, some supplemental potassium, metformin for his diabetes, and a couple of other medications. He lost his insurance coverage and took the medications as long as he could, but was off his medications for the better part of 8 or 9 months. He just restarted them within the past month on their old schedule. That included the losartan, although he does not recall the dose of losartan. It has not been resumed here in the hospital. He also previously was on naproxen long-term because of chronic arthritis. He has had bilateral hips replaced, although he states he has also been off of that for the better part of the past year. He has not been taking any [id number]-gmv-wvebplm nonsteroidals. No other recent severe illnesses. PAST MEDICAL HISTORY: Diabetes, as noted above, type 2 for 15 years; [address] [address] CONSULTATION Name: SHAI SOTELO Room #: 214-P [facility] IN .R.#: [id number] Admission: 02/15/20 Attend Phys: Apurva Alfonso MD Discharge: Date of : 60 Report #: [id number] hypertension for the same period of time, paroxysmal atrial fibrillation with an episode year ago and again now with rapid ventricular response. He has obstructive sleep apnea and has been on nighttime CPAP for the better part of the past 10 years. He has had both hips replaced. MEDICATIONS: On admission apparently included losartan 100 mg daily, amlodipine 5 mg daily, Bystolic 5 mg daily, Xarelto 20 mg daily, metformin 1000 mg b.i.d., flecainide 100 mg b.i.d., vitamin D3 1000 units daily, rosuvastatin 20 mg daily, Wellbutrin 300 mg daily, aspirin 81 mg daily, sildenafil 100 mg daily. ALLERGIES: No known medical allergies. FAMILY HISTORY: Negative for any renal disease of which he is aware of. SOCIAL HISTORY: The patient is , lives in [place], [place]. He is currently without a job. Nonsmoker. REVIEW OF SYSTEMS: Again, reports no difficulty voiding urine. No dysuria, no hesitancy. No symptoms of obstruction. He was having some lower extremity edema that improved when he got back on his Lasix as an outpatient. He was having increasing dyspnea, which is why he sought attention for. While that was going on, he was found to have atrial fibrillation with RVR. He states his joints are actually somewhat better. Denies nausea or vomiting. No diarrhea. No change in bowel habits. He is unaware of fevers, chills or sweats. No recent COVID diagnosis. PHYSICAL EXAMINATION: GENERAL: A 60-year-old male, overweight, awake, alert and oriented. VITAL SIGNS: Blood pressure most recently 122/71, heart rate was 126, oxygen saturation only 93%, temperature 98.0. HEENT: Shows pupils equal and reactive. Sclerae nonicteric. Oral mucosa is moist. NECK: Veins are not distended. Neck is supple. CHEST: Clear bilaterally. HEART: Has an irregularly irregular rhythm. ABDOMEN: Obese and has normoactive bowel sounds, soft, nontender at this time. No CVA tenderness. EXTREMITIES: Showed no edema at this time. He has 2+ pedal pulses. LABORATORY DATA: Lab from yesterday, sodium 138, potassium 3.8, chloride 103, bicarbonate 26, BUN 29, creatinine 1.6, calcium 8.8, magnesium 2.3. White count 10.7, hemoglobin 11.5, hematocrit 36.7, platelets 274,000. Normal differential on the white cells. Last urinalysis was from a year ago. ASSESSMENT: 1. Elevated creatinine. Most likely this is an acute kidney injury. Number one [address] [address] CONSULTATION Name: SHAI SOTELO Brittani Room #: 214-P ADM IN ..#: [id number] Admission: 02/15/20 Attend Phys: Apurva Alfonso MD Discharge: Date of : 60 Report #: [id number] concern in a 60-year-old male would be obstructive changes, even though he is not having symptoms of that. We even had urine for a year to see if there is proteinuria or cells, so we will check a urinalysis. We will also screen for proteinuria. I will check a renal ultrasound to make sure he is not having bladder distention or hydronephrosis. Again, he had none of it a year ago on a CT scan. He has been generally asymptomatic from a renal standpoint. He has not been taking nonsteroidals. He did get back on some losartan, but I do not think he has been hypotensive nor having a reason for that to raise his creatinine to 1.6. We will start a workup and see what we find. The other concern at this point is that he is scheduled for cardiac catheterization because of his change in an echocardiogram and decreased ejection fraction. I will see what his labs look like in the morning if they are lower than the 1.6, it should be fine. If they are higher than the 1.6, we might want to hold off for a few days to reduce the risk of potential contrast nephrotoxicity if his creatinine is still climbing. Obviously, all the old __ still apply including using iso-osmolar contrast as little of the dose as possible and some additional volume given around the time of contrast exposure, all of which have been demonstrated to decrease the risk of acute kidney injury from the contrast nephrotoxicity. 2. Atrial fibrillation with rapid ventricular response, on ongoing therapy. 3. Ejection fraction diminished as noted above consistent with cardiomyopathy. 4. Longstanding hypertension. I expect long-term, we want him back on the angiotensin receptor channing, but will hold it for the moment until we worked out some of the current issues. 5. Long history of diabetes. 6. Obesity with obstructive sleep apnea. PLAN: 1. I will order renal ultrasound. 2. Check urine studies including urinalysis, fractional excretion of sodium, and proteinuria. 3. Repeat labs in the morning. 4. We will follow along the care of this patient. <ELECTRONICALLY SIGNED> By: Curtis Mcgowan MD 02/18/20 0720 1515 1739 Curtis Mcgowan MD /nt
--- NOTE | 2020-02-18 07:59 | NUR ---
PT SLEEPING UP TO RECLINER WITH CPAP THRU THE NOC, NO C/O PAIN, VSS CON'T AFIB PER MONITOR , VOIDING PER URINAL, NPO AFTER MNOC FOR C. CATH THIS AM, WILL CON'T TO MONITOR PER PPOC.
--- NOTE | 2020-02-18 08:07 | EKG ---
[facility] [place] [address] ELECTROCARDIOGRAM REPORT Name: SHAI SOTELO Room #: 214-P ADM IN M.R.#: [id number] Admission: 02/15/20 Attend Phys: Apurva Alfonso MD Discharge: Date of : 60 Report #: [id number] THIS REPORT FOR: cc: Espinoza Mckeon James A. DO Santiago, Patrick MD [facility] ~ THIS REPORT FOR: //name// [facility] ED Test Date: 2020-02-15 Test Time: 14:31:38 Pat Name: SHAI SOTELO Department: Room: 214 Gender: M Big Data Developer: arben : 1960 Requested By: Corby Gupta Order Number: [id number] MD: Bairon Greene Measurements Intervals [place] Rate: 117 P: CO: QRS: 13 QRSD: 103 T: 64 QT: 358 QTc: 500 Interpretive Statements Atrial fibrillation Compared to ECG 03/25/2019 23:51:55 Sinus rhythm no longer present Electronically Signed On 02-18-2020 8:07:12 CDT by Bairon Greene [email or web address] <ELECTRONICALLY SIGNED> By: Bairon Greene MD, FACC 02/18/20 0807 1431 1431 Bairon Greene MD, FAC /EPI
[2020-02-18 17:03] LABS: MAGNESIUM 2.4 mg/dL (1.8-2.4)
--- NOTE | 2020-02-18 18:07 | CATHLAB ---
[facility] [place] [address] INVASIVE PROCEDURE REPORT Name: SHAI SOTELO Brittani Room #: 214-P ADM IN M.R.#: [id number] Admission: 02/15/20 Attend Phys: Apurva Alfonso MD Discharge: Date of : 60 Report #: [id number] THIS REPORT FOR: cc: Espinoza Mckeon James A. DO Mancuso, Gerald M. MD [facility] ~ APPROVED REPORT Study performed: 02/18/2020 14:46:12 Patient Details Patient Status: In-Patient Room #: 214N The patient is a 60 year-old male Event Personnel Mart Davenport Clamshell Operator, Lui Newby RN, Edgard Winslow RTR Ted Ambriz Ja'net RTR Monitor Procedures Performed Right and Left Heart Cath w/or w/o Coronarie [id number] [facility] Art Access - R femoral artery* Sheng Access - L femoral vein 04412 Initial Mod Sed Same Phys/QHP Gr5y [id number] 09886 Mod Sed Same Phys/QHP Ea [id number] Hemostasis w/ Mynx Indication Chest pain Procedure Narrative The patient was brought electively to the Cardiac Catheterization Laboratory and was prepped and draped in a sterile manner. The Right Groin^ was infiltrated with 1% Lidocaine subcutaneous anesthesia. A Right Heart Catheterization was performed with a 7 Fr. Wingate-Jos catheter and pressure were recorded. Cardiac outputs were obtained by the Thermal Dilution method. A PINNACLE 7FR Sheath #[id number] sheath was inserted into the RFV^. Coronary angiography was performed using coronary diagnostic catheters. The right coronary system was accessed and visualized with a JR4 catheter. The left coronary system was accessed and visualized with a 6FR JL5 #[id number] catheter. The left ventricle was accessed and visualized with a STRAIGHT PIGTAIL catheter. Pre-demployment femoral angiogram was performed . Closure device was deployed with a Fr MYNXGRIP 6/7F #[id number]. Hemostasis was obtained with manual pressure following sheath removal without any complications. The patient tolerated the procedure well and there were no complications associated with [place] [address] INVASIVE PROCEDURE REPORT Name: SHAI SOTELO Room #: 214-P [facility] IN [facility]#: [id number] Admission: 02/15/20 Attend Phys: Ruthy Hodges Discharge: Date of : 60 Report #: [id number]. Intraoperative Conscious Sedation Sedation start time: 15:29 Case end Time: 16:15 Fentanyl 100 mcg Versed 2 mg Fluoro Time: 6.00 minutes Dose: DAP 13307.30 cGycm2 1872 mGy Contrast Type and Amount: Visipaque 105 ml Hemodynamics The right atrial mean pressure is 26 mmHg. The right ventricular pressure is 54/14 mmHg. The pulmonary artery pressure is 62/38 mmHg with a mean of 48 mmHg. The mean pulmonary capillary wedge pressure is 53 mmHg. The aortic pressure is 122/92 mmHg with a mean of 93 mmHg. The left ventricular pressure is 161/13 mmHg with a mean of mmHg. The left ventricular end diastolic pressure is 31 mmHg. The cardiac output using thermo method is 3.10 L/min. The cardiac index using thermo method is 1.20 L/min/m2. Conclusion #1. Successful right heart catheterization with cardiac output by thermodilution see above hemodynamics. Significant volume overload pulmonary pressure elevation. #2 moderately dilated left ventricle with severe global hypokinesis EF 15 to 20% #3 left main widely patent giving rise to LAD and circumflex #4 the LAD diffusely diseased but no occlusive disease. 3040% irregularities proximally. #5 circumflex OM nondominant with mild disease small ramus branch widely patent #6 large dominant right coronary with mild irregularity. No occlusive disease Conditions and plan: Continue aggressive risk factor modification aggressive diuresis has been initiated. Will transfer to CCU in guarded condition needs aggressive fluid management. Rate control. <ELECTRONICALLY SIGNED> By: Mart Davenport MD, FACC 02/18/201806 06 06 Mart Davenport MD, FACC /INF
--- NOTE | 2020-02-18 18:58 | NUR ---
PT CARE ASSUMED AT 0700. ASSESSMENTS CHARTED. MEDICATION CHARTED. RT GROIN; MYNX CLOSURE; NO INTERVENTION. HEMOSTASIS AT 1615; BEDREST UNTIL 191. CARDIZEM GTT AT 10 ML/HR. CPAP AT HS. RAC IV. ACHS. UP AD NICOL.
[2020-02-19] VITALS (7 sets, daily range): BP systolic 114–150; BP diastolic 65–102
[2020-02-19 01:06] LABS: GLYCOHEMOGLOBIN (HGB A1C) 5.7 % (4.8-5.6)
[2020-02-19 04:40] LABS: ALBUMIN 2.9 g/dL (3.4-5.0); CALCIUM 8.2 mg/dL (8.5-10.1); CREATININE 1.5 mg/dL (0.7-1.3); PHOSPHORUS 3.5 mg/dL (2.5-4.9); POTASSIUM 3.6 mmol/L (3.5-5.1)
--- NOTE | 2020-02-19 07:07 | NUR ---
PATIENT SLEPT WELL ON THE RECLINER WITH OWN CPAP.RIGHT GROIN C/D/I.ON CARDIZEM GTT AT 10 ML/HR;NO TITRATION ORDERED.MONITOR SHOWS AFIB.POC CONTINUED.
--- NOTE | 2020-02-19 16:55 | NUR ---
Met with patient who admits with afib. Patient does not have health insurance, PCP or employment. Has 5 children, youngest dtr 16 lives in home. Has supportive . [employer] [place]. Gave patient prescription assistance cards and clinic resources. Patient on xeralto and can no longer afford. Gave phone number to call xeralto possible pharmacutical assistance.
--- NOTE | 2020-02-19 19:10 | NUR ---
PT CARE ASSUMED AT 0700. ASSESSMENT CHARTED. MEDICATION CHARTED. AFIB. PT ON RA; WEARS CPAP WHEN SLEEPING; PT'S OWN. FLUID RESTRICTION OF 1800. RAC IV. UP AD NICOL. SLEPT IN RECLINER LAST NIGHT.
[2020-02-20 05:43] VITALS: BP 148/95
[2020-02-20 07:08] LABS: ALBUMIN 3.2 g/dL (3.4-5.0); CALCIUM 8.6 mg/dL (8.5-10.1); CREATININE 1.5 mg/dL (0.7-1.3); PHOSPHORUS 4.2 mg/dL (2.5-4.9); POTASSIUM 3.8 mmol/L (3.5-5.1)
[2020-02-20 07:40] VITALS: BP 129/92
[2020-02-20] MEDS ORDERED: DILTIAZEM 24HR180 M1 PO (07:52)
[2020-02-20] MEDS ORDERED: DEMADEX20 MG PO (07:52)
[2020-02-20] MEDS ORDERED: COZAAR 50 MG TA50 MG PO (07:52)
[2020-02-20] MEDS ORDERED: POTASSIUM20 PO (07:52)
[2020-02-20] MEDS ORDERED: CARVEDILOL12.5 MG PO (07:52)
[2020-02-20 10:24] VITALS: BP 129/92
[2020-02-20 10:45] VITALS: BP 129/92
--- NOTE | 2020-02-20 11:41 | NUR ---
ASSESSMENT CHARTED - MEDS PER JUL - NO CO'S OF PAIN OR NAUSEA. INDER DIET AND FLUIDS. UP AD NICOL IN ROOM AND ON THE UNIT. ACCUCHECKS CHARTED - PT HOME THIS AM. INSTRUCTION RE HOME MEDS/ CARE AND FOLLOW UP GIVEN TO PATIENT STATED UNDERSTANDING OF INSTRUCTION GIVEN. PT LEFT UNIT VIA WHEELCHAIR - HOME VIA PVT VEHICLE ACCOMAPNIED BY STEP - MOTHER. MONITOR AND IV REMOVED PRIOR TO D/C. NO CO'S AT TIME OF D/C.
--- NOTE | 2020-02-20 14:54 | NUR ---
Patient to dc today. Arranged outpatient apt at [facility] for 02/22/20 at 10:00am. Patients medications on $4 dollar list and cardiology sent patient home with samples. Patient in agreement with plan.
== END 2020-02-20 11:40 | disposition home or self-care (01) | DRG 287 ==
LOC: ER 14:24 → EROBS 17:32 → 2N 17:33
PROVIDERS: Hospitalist; Internal Medicine Cardiovascular Disease; Internal Medicine Nephrology; Nurse Practitioner; Nurse Practitioner Adult Health; ADMIT Hospitalist; ATTEND Hospitalist
PROC: 5A09557 Assistance with Respiratory Ventilation, Greater than 96 Consecutive Hours, Continuous Positive Airway Pressure (ICD-10-PCS; principal; 2020-02-15)
PROC: 4A023N8 Measurement of Cardiac Sampling and Pressure, Bilateral, Percutaneous Approach (ICD-10-PCS; 2020-02-18)
PROC: B41FYZZ Fluoroscopy of Right Lower Extremity Arteries using Other Contrast (ICD-10-PCS; 2020-02-18)
PROC: B211YZZ Fluoroscopy of Multiple Coronary Arteries using Other Contrast (ICD-10-PCS; 2020-02-18)
DX: I48.91 Unspecified atrial fibrillation (principal); N17.9 Acute kidney failure, unspecified; I50.20 Unspecified systolic (congestive) heart failure; Z68.42 Body mass index [BMI] 45.0-49.9, adult; I13.0 Hypertensive heart and chronic kidney disease with heart failure and stage 1 through stage 4 chronic kidney disease, or unspecified chronic kidney disease; E78.5 Hyperlipidemia, unspecified; Z96.643 Presence of artificial hip joint, bilateral; G47.33 Obstructive sleep apnea (adult) (pediatric); E66.9 Obesity, unspecified; N18.9 Chronic kidney disease, unspecified; I27.20 Pulmonary hypertension, unspecified; E11.22 Type 2 diabetes mellitus with diabetic chronic kidney disease; Z79.82 Long term (current) use of aspirin; Z79.899 Other long term (current) drug therapy
CPT/HCPCS: 10081

== ENCOUNTER → 2020-05-15 | Outpatient (CLI) | payer OTHER ==
[~2020-05-15] MED LIST changes: +CARVEDILOL12.5 MG PO; +COZAAR 50 MG TA50 MG PO; +DEMADEX20 MG PO; +DILTIAZEM 24HR180 M1 PO; +POTASSIUM20 PO; +SILDENAFIL CIT100 MG PO
== END ==
LOC: SJCVCIMAG 08:05
PROVIDERS: ATTEND Internal Medicine Cardiovascular Disease
DX: I08.3 Combined rheumatic disorders of mitral, aortic and tricuspid valves (principal); I48.91 Unspecified atrial fibrillation; J44.9 Chronic obstructive pulmonary disease, unspecified

== ENCOUNTER 2020-11-03 12:47 | Emergency (ER) | payer OTHER ==
[~2020-11-03] VITALS: Ht 182.9 cm; Wt 164.8 kg
--- NOTE | ~2020-11-03 | EMS ---
[address] [address] EMS Patient Care Report Name: SHAI SOTELO Room #: REG [facility] Lock#: [id number] Admission: 11/03/20 Attend Phys: Discharge: Date of : 60 Report #: [id number] THIS REPORT FOR: //name// Report Transmitted: 11/03/2020 14:47 EMS Care Summary [facility] Incident [id number] @ 11/03/2020 11:57 Incident Location [address] [place] [address] Patient SHAI SOTELO Male, 60 Years 1960 Patient Address Patient History Diabetes,Atrial Fibrillation, Patient Allergies Vicodin, Chief Complaint suspected stroke Disposition Transported [place] Dispatch Reason Stroke/CVA Transported To [facility] Narrative Dispatched for a possible stroke. The patient is found on his couch in the living room. The said that she noticed around 11:25 am that he started acting differently. He is alert, but seems confused. His left side is completely limp and he cant feel it. He feels like he is moving it. There is ipsilateral droopage on his right side on the face. He also has slurred speech. He is confused moderately as well. Blood glucose was checked and is 100mg/dl. He was then carried with a sheet to the garage where he was put on the stretcher. [employer] checked on [facility] [address] [place] [address] EMS Patient Care Report Name: SHAI SOTELO Room #: REG [facility]#: [id number] Admission: 11/03/20 Attend Phys: Discharge: Date of : 60 Report #: [id number] was closed to [facility]. Once in the ambulance an iv was started and he was put on o2. Then departed. The patient did not decline nor improve while transporting. Vitals and trending were continued until he was delivered to the ER. We then wheeled him to CT and transferred care over there. Note: There is no insurance information. Initial Vitals @12:36P: 92,R: 14,BP: 145/86,Pain: 0/10,GCS: 12,SpO2: 94,Revised Trauma: 11, @12:15P: 110,BP: 148/110,GCS: 13,Glucose: 100,SpO2: 93, @12:23P: 101,R: 14,BP: 221/97,Pain: 0/10,GCS: 13,SpO2: 93,Revised Trauma: 12, @12:29P: 108,R: 14,BP: 165/149,Pain: 0/10,GCS: 13,SpO2: 96,Revised Trauma: 12, @12:41P: 102,R: 14,BP: 152/109,Pain: 0/10,GCS: 13,SpO2: 96,Revised Trauma: 12, Assessments @12:07MENTAL:Confused,Person Oriented,Place Oriented,Event Oriented,SKIN:HEENT:Head/Face: No Abnormalities,Eyes: No Abnormalities,Neck/Airway: No Abnormalities,LUNG SOUNDS:General: No Abnormalities,Left Upper: No Abnormalities,Right Upper: No Abnormalities,Left Lower: No Abnormalities,Right Lower: No Abnormalities,ABDOMEN:General: No Abnormalities,Left Upper: No Abnormalities,Right Upper: No Abnormalities,Left Lower: No Abnormalities,Right Lower: No Abnormalities,PELVIS//GI:No Abnormalities,EXTREMITIES:Capillary Refill: Right Upper: < 2 Sec,Left Arm: No Abnormalities,Right Arm: No Abnormalities,Left Leg: No Abnormalities,Right Leg: No Abnormalities,PULSE:Radial: 2+ Normal,NEURO:No Abnormalities,@12:09MENTAL:Confused,Person Oriented,Time Oriented,Place Oriented,SKIN:HEENT:Eyes: No Abnormalities,Neck/Airway: No Abnormalities,LUNG SOUNDS:General: No Abnormalities,Left Upper: No Abnormalities,Right Upper: No Abnormalities,Left Lower: No Abnormalities,Right Lower: No Abnormalities,ABDOMEN:General: No Abnormalities,Left Upper: No Abnormalities,Right Upper: No Abnormalities,Left Lower: No Abnormalities,Right Lower: No Abnormalities,PELVIS//GI:No Abnormalities,EXTREMITIES:Capillary Refill: Right Upper: < 2 Sec,Left Arm: No Abnormalities,Right Arm: No Abnormalities,Left Leg: No Abnormalities,Right Leg: No Abnormalities,PULSE:Radial: 2+ Normal,NEURO:No Abnormalities, Impression Stroke Procedures @12:07ALS AssessmentResponse: UnchangedSucceeded@12:22Normal Saline (.9% NaCl) 250cc (20 ga) Site: Forearm-LeftResponse: UnchangedSucceeded@12:22Oxygen FlowRate: 4 Device: Nasal Cannula (NC) Response: UnchangedSucceeded@12:083-Lead ECGResponse: UnchangedSucceeded [address] [address] EMS Patient Care Report Name: SHAI SOTELO Room #: [facility] Hayde#: [id number] Admission: 11/03/20 Attend Phys: Discharge: Date of : 60 Report #: [id number] Timeline 11:56,Call Received 11:56,Psap Call 11:57,Dispatched 11:59,En Route 12:06,On Scene 12:07,At Patient 12:07,ALS Assessment,Response: UnchangedSucceeded, 12:08,3-Lead ECG,Response: UnchangedSucceeded, 12:15,BP: 148/110 M,PULSE: 110,RR: R,SPO2: 93 Ox,ETCO2: ,B,PAIN: ,GCS: 13, 12:22,Normal Saline (.9% NaCl) 250cc 20 ga Site: Forearm-Left,Response: UnchangedSucceeded, 12:22,Oxygen FlowRate: 4 Device: Nasal Cannula (NC) Response: UnchangedSucceeded, 12:23,Depart Scene 12:23,BP: 221/97 M,PULSE: 101,RR: 14 R,SPO2: 93 Ox,ETCO2: ,BG: ,PAIN: 0,GCS: 13, 12:29,BP: 165/149 M,PULSE: 108,RR: 14 R,SPO2: 96 Ox,ETCO2: ,BG: ,PAIN: 0,GCS: 13, 12:36,BP: 145/86 M,PULSE: 92,RR: 14 R,SPO2: 94 Ox,ETCO2: ,BG: ,PAIN: 0,GCS: 12, 12:41,BP: 152/109 M,PULSE: 102,RR: 14 R,SPO2: 96 Ox,ETCO2: ,BG: ,PAIN: 0,GCS: 13, 12:44,At Destination 13:26,Call Closed Disclaimer v1.1 Copyright 2020 [employer] This EMS Care Summary contains data elements from the applicable legal record (which may be displayed differently). It is designed to provide pertinent information for the following purposes: continuity of care, clinical quality, and state data reporting. The complete legal record is available to ED staff and administrators of the receiving hospital in [facility]'s Patient Tracker. All data is provided "as is."
[2020-11-03 13:35] LABS: BASOPHILS 0.6 % (0.0-2.0); EOSINOPHILS 1.4 % (0.0-3.0); HEMOGLOBIN 12.5 gm/dL (14.0-18.0); LYMPHOCYTES 24.1 % (24.0-44.0); MCH 26.4 pg (26.0-34.0); MCHC 32.9 g/dL (28.0-37.0); MCV 80.3 fL (80.0-100.0); MONOCYTES 10.1 % (1.0-8.0); PLATELET COUNT 239 thou/uL (150-400); POLYS 63.8 % (36.0-66.0); RBC 4.73 mil/uL (4.50-6.00); RDW 17.4 % (10.5-14.5); WBC 7.9 thou/uL (4.0-11.0)
[2020-11-03 13:46] LABS: ANION GAP 7 mmol/L (7-16); BUN 11 mg/dL (7-18); CALCIUM 8.4 mg/dL (8.5-10.1); CHLORIDE 109 mmol/L (98-107); CO2 27 mmol/L (21-32); CREATININE 1.3 mg/dL (0.7-1.3); GLUCOSE 107 mg/dL (74-106); POTASSIUM 3.9 mmol/L (3.5-5.1); SODIUM 143 mmol/L (136-145)
[2020-11-03 13:57] LABS: ALBUMIN 3.2 g/dL (3.4-5.0); SGOT 21 U/L (15-37); SGPT 23 U/L (16-63); TOTAL BILIRUBIN 0.6 mg/dL (0.2-1.0); TOTAL PROTEIN 7.2 g/dL (6.4-8.2); TROPONIN-I <0.06 ng/mL (<0.06)
[2020-11-03 14:19] LABS: INR 1.11
--- NOTE | 2020-11-03 14:34 | EKG ---
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 : 1960 Requested By: Spenser Greer Order Number: [id number] MD: Bairon Greene Measurements Intervals [place] Rate: 97 P: ME: QRS: 12 QRSD: 111 T: 35 QT: 383 QTc: 487 Interpretive Statements Atrial fibrillation Borderline low voltage, extremity leads Borderline prolonged QT interval Baseline wander in lead(s) V4 Compared to ECG 02/15/2020 14:31:38 No significant changes Electronically Signed On 11-03-2020 14:34:29 CDT by Bairon Greene [email or web address] <ELECTRONICALLY SIGNED> By: Bairon Greene MD, [facility] 11/03/20 1434 1327 26 Bairon Greene MD, FACC /EPI
[2020-11-03 15:00] VITALS: BP 175/66
== END 2020-11-03 15:00 | disposition short-term general hospital (02) ==
LOC: ER 12:47
PROVIDERS: Emergency Medicine
DX: I63.89 Other cerebral infarction (principal); J96.90 Respiratory failure, unspecified, unspecified whether with hypoxia or hypercapnia; I10 Essential (primary) hypertension; E11.9 Type 2 diabetes mellitus without complications; I48.91 Unspecified atrial fibrillation; Z88.6 Allergy status to analgesic agent; Z88.5 Allergy status to narcotic agent; Z79.82 Long term (current) use of aspirin; Z79.899 Other long term (current) drug therapy; Z98.890 Other specified postprocedural states

== ENCOUNTER → 2021-04-01 | Outpatient (CLI) | payer OTHER | LOC: SJCVC 11:48 | PROVIDERS: ATTEND Internal Medicine Cardiovascular Disease | DX: R94.31 Abnormal electrocardiogram [ECG] [EKG] (principal); I48.0 Paroxysmal atrial fibrillation; I10 Essential (primary) hypertension; I25.10 Atherosclerotic heart disease of native coronary artery without angina pectoris; E11.9 Type 2 diabetes mellitus without complications; I42.9 Cardiomyopathy, unspecified; J44.9 Chronic obstructive pulmonary disease, unspecified; E78.5 Hyperlipidemia, unspecified; G47.33 Obstructive sleep apnea (adult) (pediatric); E78.00 Pure hypercholesterolemia, unspecified; Z87.891 Personal history of nicotine dependence; Z79.82 Long term (current) use of aspirin; Z79.899 Other long term (current) drug therapy; Z88.5 Allergy status to narcotic agent ==